=== PATIENT | male | born 1960 | race Caucasian/White ===

== ENCOUNTER → 2017-03-04 | Outpatient (CLI) | payer OTHER ==
[2015-11-20 12:23] VITALS: BP 129/77
[2017-03-04 08:09] LABS: BASOPHILS # (AUTO) 0.1 X10^3/uL (0.0-0.1); BASOPHILS % (AUTO) 1.2 % (0.2-1.0); EOSINOPHILS # (AUTO) 0.4 x10^3/uL (0.0-0.2); EOSINOPHILS % (AUTO) 4.9 % (0.9-2.9); HEMATOCRIT 43.5 % (42.0-54.0); HEMOGLOBIN 14.9 g/dL (13.5-18.0); HEMOGLOBIN A1C 10.1 % (4.5-6.2); LYMPHOCYTES % (AUTO) 26.5 % (21.0-51.0); MEAN CORPUSCULAR HEMOGLOBIN 28.7 pg (27.0-34.0); MEAN CORPUSCULAR HGB CONC 34.1 g/dL (33.0-35.0); MEAN PLATELET VOLUME 10.5 fL (7.4-11.0); MONOCYTES # (AUTO) 0.5 x10^3/uL (0.3-0.8); MONOCYTES % (AUTO) 6.9 % (0.0-13.0); NEUTROPHILS # (AUTO) 4.5 x10^3/uL (2.2-4.8); NEUTROPHILS % (AUTO) 60.5 % (42.0-75.0); PLATELET COUNT 137 X10^3/uL (150.0-450.0); RED BLOOD COUNT 5.18 X10^6/uL (4.7-6.0); RED CELL DISTRIBUTION WIDTH 14.2 % (11.6-16.5); WHITE BLOOD COUNT 7.5 X10^3/uL (3.6-10.0)
[2017-03-04 08:13] LABS: ALBUMIN 3.3 g/dL (3.4-5.0); CALCIUM 8.9 mg/dL (8.5-10.1); CARBON DIOXIDE 29.6 mmol/L (21-32); COR CA(FOR HYPOALB) 9.5 mg/dL (8.5-10.1); CREATININE 1.69 mg/dL (0.70-1.30); TOTAL PROTEIN 7.2 g/dL (6.4-8.2)
== END ==
LOC: LAB 07:22
PROVIDERS: ATTEND Obstetrics & Gynecology Obstetrics
DX: E11.9 Type 2 diabetes mellitus without complications (principal)
CPT/HCPCS: 36415; 80053; 80061; 83036; 83525; 85025

== ENCOUNTER 2020-01-26 12:43 | Observation (INO) ==
[2020-01-26 12:48] VITALS: BMI 35.7
--- NOTE | 2020-01-26 13:16 | DR.GENAD ---
HPI - PCP Primary Care Physician: IDANIA - Complaint/Symptoms Chief Complaint Doctors Comments: Patient is complaining of cold, cough, nausea, vomiting and diarrhea for the past four days. Patient states he has not been able to keep anything down from coughing and vomiting when he cough for the past four dayd. He has had not taste for four days. He is complaining of diarrhea and SOB but denies chest pain. States he dips but denies smoking. He use alcoho at times but denies drug usage. States he was at [facility] today and tested positive for COVID virus. He denies COVID exposure. He is a diabetic and is a patient of Dr. Kerns. States he is taking medicines for hypertension, thyroid and diabetes. Chief Complaint:: PT. C/O N/V/D X 4 DAYS. PT. IS A DIABETIC AND IS UNABLE TO KEEP ANYTHING DOWN. PT. C/O SHORTNESS OF BREATH AND COUGH. PT. WAS SEEN AT [facility] AND WAS TESTED FOR COVID 19 WHICH WAS POSITIVE. - COVID-19 Coronavirus risk:travel/contact w/high risk person: Yes Has patient experienced Coronavirus symptoms: Yes Coronavirus symptoms experienced: Coughing, Shortness of Breath - Source History Provided: Patient - Mode of Arrival Mode of Arrival: Ambulatory - Timing Onset of Chief Complaint: 01/22/20 Came on: Gradually - Duration Duration: Constant How lon Duration: Days - Severity Severity: Moderate - Modifying Factors Worsens:: coughing Improves:: nothing PMH - PMH Past Medical History: Yes Past Medical History: Diabetes, Hypertension Past Surgical History: Yes Surgical History: Other Past Surgical History Comment: CYST REMOVED, CATARACTS - Family History History of Family Medical Conditions: Yes Family Medical History: Diabetes Mellitus, [place], Coronary Artery Disease, Sudden Cardiac , Hypertension - Social History Does patient currently use any type of tobacco product: Yes Have you used tobacco products in the last 12 months: Yes Type of Tobacco Use: DIPS Does any household member use tobacco: No Alcohol Use: Rarely Do you use any recreational Drugs:: No Lives With: Spouse Lives Where: Home - Travel Risk Coronavirus risk:travel/contact w/high risk person: Yes Has patient experienced Coronavirus symptoms: Yes Coronavirus symptoms experienced: Coughing, Shortness of Breath - infectious screening In the last 2 months have you had wt loss of >10#?: NO Have you had fever, night sweats or hemotysis?: No Have you traveled outside the country in the last 6 months?: No Isolation: Droplet ROS - Review of Systems Constitutional: No Symptoms Reported, Weakness, Loss of Appetite Eyes: No Symptoms Reported ENTM: No Symptoms Reported Respiratoy: No Symptoms Reported, Productive Cough, Short of Breath Cardiovascular: No Symptoms Reported. negative: See HPI, Chest Pain, Edema, Palpitations, Syncope, Cyanosis, Skin Mottling, Other Gastrointestinal/Abdominal: No Symptoms Reported, Diarrhea, Nausea, Vomiting Genitourinary: No Symptoms Reported. negative: See HPI, Discharge, Dysuria, Frequency, Hematuria, Pain, Bleeding, Other Neurological: No Symptoms Reported Musculoskeletal: No Symptoms Reported Integumentary: No Symptoms Reported Hematologic/Lymphatic: No Symptoms Reported. negative: See HPI, Anemia, Blood Clots, Easy Bleeding, Easy Bruising, Swollen Glands, Lymphadenopathy, Other Endocrine: No Symptoms Reported Psychiatric: No Symptoms Reported. negative: See HPI, Anxiety, Depression, Hallucinations, Excessive crying, Suicidal, Other PE - General Limitations: No Limitations General Appearance: Alert, In Distress (moderate) - Head Head Exam: Normal Inspection, Atraumatic, Normocephalic - Eyes Eye exam: Normal Appearance, PERRL, EOMI. negative: Scleral Icterus, Conjunc tival Injection, Nystagmus, Miosis, Mydrasis, Periorbital Swelling, Periorbital Tenderness, Other - ENT ENT Exam: Normal Exam, Normal Oropharynx, Normal External Ear Exam, Mucous Membranes Moist, TM's Normal Bilaterally TM/Canal Exam: Bilateral Normal Nose Exam: Normal Nose Exam Mouth Exam: Normal Inspection. negative: Drooling, Trismus, Lip Swelling, Tongue Elevation, Tongue Swelling, Laceration, Other Throat Exam: Normal Inspection. negative: Tonsillar Erythema, Tonsillomegaly, Tonsillar Exudate, R Peritonsillar Mass, L Peritonsillar Mass, Muffled Voice, Other - Neck Neck Exam: Normal Inspection, Full ROM, Trachea Midline. negative: Tenderness, Meningismus, Lymphadenopathy, Thyromegaly, Other - Chest Chest Inspection: Normal Inspection, Symmetric Chest Wall Rise. negative: Tenderness, Rash, Abscess, Other - Respiratory Respiratory Exam: Normal Lung Sounds Bilat. negative: Accessory Muscle Use, Chest Wall Tenderness, Prolonged Expiratory Phase, Respiratory Distress, Stridor, Other Respiratory Exam: Bilateral Clear to Auscultation - Cardiovascular Cardiovascular Exam: Regular Rate, Normal Rhythm, Normal Heart Sounds - Abdominal Exam Abdominal Exam: Normal Inspection, Normal Bowel Sounds, Soft. negative: Distention, Tenderness, Guarding, Rebound, Rigidity, Dimnished Bowel Sounds, Hyperactive Bowel Sounds, Hypoactive Bowel Sounds, Organomegaly, Trauma, Incision, Ascites, Mass, Bruit, Pulsatile Mass, Hernia, Other Abdominal Tenderness: negative: RUQ, RLQ, LUQ, LLQ, Epigastrium, Suprapubic, Diffuse, Mild, Moderate, Severe, Other - Extremities Extremities Exam: Normal Inspection, Full ROM, Normal Capillary Refill. negative: Tenderness, Edema, Joint Swelling, Calf Tenderness, Other - Back Back Exam: Normal Inspection, Full ROM. negative: Tenderness, (R) CVA Tenderness, (L) CVA Tenderness, Muscle Spasm, Paraspinal Tenderness, Vertebral Tenderness, Rashes, (R) Sciatic Notch Tenderness, (L) Sciatic Notch Tendern, (R) Straight Leg Raise, (L) Straight Leg Raise, Other - Neurologic Neurological Exam: Alert, Oriented X3, CN II-XII Intact, Normal Gait, Reflexes Normal - Psychiatric Psychiatric Exam: Normal Affect, Normal Mood. negative: Depressed, Agitated, Anxious, Flat Affect, Manic, Homicidal Ideation, Suicidal Ideation, Other - Skin Skin Exam: Warm, Dry, Intact, Normal Color. negative: Rash, Cyanosis, Diaphoresis, Erythema, Pallor, Mottled, Other - Vital Signs Vitals: Temperature 97.1 F Pulse Rate 93 Respiratory Rate 21 Blood Pressure [Right Arm] 129/77 Blood Pressure [Left Arm] 119/82 Blood Pressure 166/129 O2 Sat by Pulse Oximetry 96 Course - Consultation Called: 14:47 Call Returned: 14:48 (Dr. Costello states admit and place on COVID without [place].) - Education/Counseling Education/Counseling: Patient, Family Educated On: Treatment, Diagnosis, Needs for Follow Up ROR - Labs Reviewed Laboratory Results Reviewed?: Yes (All labs and x-ray results reviewed and d iscussed with patient) Result Diagrams: 01/26/20 13:42 01/26/20 13:42 - XRAY XRAY Interpreted by: Radiologist (CXR: Minimal left lower lobe infiltrate compatible with acute infection. Followup suggested.) - EKG Rate: 96 [place]: Normal Rhythm: NSR Block: None Hypertrophy: LVH ST: Old, Inf, Infarct - Labs Reviewed Laboratory: WBC 5.8 X10^3/uL (3.6-10.0) 01/26/20 13:42 RBC 5.74 X10^6/uL (4.7-6.0) 01/26/20 13:42 Hgb 17.3 g/dL (13.5-18.0) 01/26/20 13:42 Hct 50.7 % (42.0-54.0) 01/26/20 13:42 MCV 88.3 fL (80.0-100.0) 01/26/20 13:42 MCH 30.2 pg (27.0-34.0) 01/26/20 13:42 MCHC 34.2 g/dL (33.0-35.0) 01/26/20 13:42 RDW 13.6 % (11.6-16.5) 01/26/20 13:42 Plt Count 126 X10^3/uL (150.0-450.0) L 01/26/20 13:42 MPV 10.8 fL (7.4-11.0) 01/26/20 13:42 Neut % (Auto) 71.8 % (42.0-75.0) 01/26/20 13:42 Lymph % (Auto) 14.0 % (21.0-51.0) L 01/26/20 13:42 [place] % (Auto) 13.0 % (0.0-13.0) 01/26/20 13:42 Eos % (Auto) 0.0 % (0.9-2.9) L 01/26/20 13:42 Baso % (Auto) 1.2 % (0.2-1.0) H 01/26/20 13:42 Neut # (Auto) 4.2 x10^3/uL (2.2-4.8) 01/26/20 13:42 Lymph # (Auto) 0.8 X10^3/uL (1.3-2.9) L 01/26/20 13:42 [place] # (Auto) 0.8 x10^3/uL (0.3-0.8) 01/26/20 13:42 Eos # (Auto) 0.0 x10^3/uL (0.0-0.2) 01/26/20 13:42 Baso # (Auto) 0.1 X10^3/uL (0.0-0.1) 01/26/20 13:42 Absolute Nucleated RBC 1.0 /100WBC 01/26/20 13:42 PT 13.8 SECONDS (11.8-14.3) 01/26/20 13:42 INR Target Range - 01/26/20 13:42 INR 1.09 (0.8-1.3) 01/26/20 13:42 APTT 26.6 SECONDS (22.9-36.5) 01/26/20 13:42 PTT Comment - 01/26/20 13:42 Sample Site Lrad 01/26/20 13:25 ABG pH 7.400 (7.35-7.45) 01/26/20 13:25 ABG pCO2 38.0 mmHg (35.0-45.0) 01/26/20 13:25 ABG pO2 66.0 mmHg (80.0-100.0) L 01/26/20 13:25 ABG HCO3 23.5 mmol/L (22-26) 01/26/20 13:25 ABG O2 Saturation 93.0 % (90-100) 01/26/20 13:25 ABG Base Excess -1.1 mmol/L (-2.0-2.0) 01/26/20 13:25 Umair Test Pos 01/26/20 13:25 A-a Gradient 36.0 mmHg 01/26/20 13:25 FiO2 21.0 01/26/20 13:25 Blood Gas Comments Pt maurilio wel elj 01/26/20 13:25 Sodium 133 mmol/L (136-145) L 01/26/20 13:42 Corrected Sodium 133 mmol/L (136-145) L 01/26/20 13:42 Potassium 3.8 mmol/L (3.5-5.1) 01/26/20 13:42 Chloride 94 mmol/L (98-107) L 01/26/20 13:42 Carbon Dioxide 30.1 mmol/L (21-32) 01/26/20 13:42 BUN 52 mg/dL (7-18) H 01/26/20 13:42 Creatinine 2.76 mg/dL (0.70-1.30) H 01/26/20 13:42 Est GFR (MDRD) Af Amer 30 (>60) L 01/26/20 13:42 Est GFR (MDRD) Non-Af 25 (>60) L 01/26/20 13:42 Glucose 115 mg/dL (65-99) H 01/26/20 13:42 Calcium 8.6 mg/dL (8.5-10.1) 01/26/20 13:42 Corrected Calcium TNP 01/26/20 13:42 Magnesium 2.0 mg/dL (1.7-2.9) 01/26/20 13:42 Ferritin 621 ng/mL (26-388) H 01/26/20 13:42 Total Bilirubin 0.60 mg/dL (0.2-1.0) 01/26/20 13:42 AST 49 Units/L (15-37) H 01/26/20 13:42 ALT 50 Units/L (12-78) 01/26/20 13:42 Alkaline Phosphatase 87 Units/L (46-116) 01/26/20 13:42 Creatine Kinase 296 Units/L (39-308) 01/26/20 13:42 CK-MB (CK-2) 1.2 ng/mL (0-4.0) 01/26/20 13:42 CK/CKMB % Calc 0.4 % (<4) 01/26/20 13:42 Troponin I < 0.02 ng/mL (0-1.5) 01/26/20 13:42 C-Reactive Protein 27.10 mg/L (0-3.0) H 01/26/20 13:42 Total Protein 8.1 g/dL (6.4-8.2) 01/26/20 13:42 Albumin 3.9 g/dL (3.4-5.0) 01/26/20 13:42 Globulin 4.2 g/dL (2.5-4.5) 01/26/20 13:42 Albumin/Globulin Ratio 0.9 Ratio (1.1-2.1) L 01/26/20 13:42 - XRAY Xray Findings: Abdominal series: No specific or significant abdominal abnormality demonstrated. (YUKI YIN) Opioid - Opioid Risk Tool Age (Nnamdi box if 16-45): No History of Preadolescent Sexual Abuse: No Total: 0 Total Score Risk Category: Low Risk - Diagnosis Discharge Problem: COVID-19 virus infection, Gastroenteritis due to COVID-19 virus, Pulmonary infiltrate in left lung on CXR, Dehydration, moderate Chronic kidney disease (CKD) Qualifiers: Chronic kidney disease stage: stage 3 (moderate) - Discharge Plan Disposition: 09 ADMITTED INPATIENT Condition: Stable - Follow ups/Referrals Follow ups/Referrals: JOJO KERNS [Primary Care Provider] - 3 days - Instructions
[2020-01-26] MEDS ORDERED: ZOFRAN INJ 4 MG VIAL IVP ONE (13:18)
[2020-01-26] MEDS ORDERED: ZOFRAN INJ 4 MG VIAL ONE (13:22)
[2020-01-26] MEDS ORDERED: NS 1000 ML 1,000 ML ONE (13:22)
[2020-01-26 13:33] LABS: ABG ALLEN TEST POS; ABG BASE EXCESS -1.1 mmol/L (-2.0-2.0); ABG HCO3 23.5 mmol/L (22-26)
[2020-01-26 13:52] LABS: BASOPHILS # (AUTO) 0.1 X10^3/uL (0.0-0.1); BASOPHILS % (AUTO) 1.2 % (0.2-1.0); HEMATOCRIT 50.7 % (42.0-54.0); HEMOGLOBIN 17.3 g/dL (13.5-18.0); LYMPHOCYTES # (AUTO) 0.8 X10^3/uL (1.3-2.9); MEAN CORPUSCULAR HEMOGLOBIN 30.2 pg (27.0-34.0); MEAN CORPUSCULAR HGB CONC 34.2 g/dL (33.0-35.0); MEAN CORPUSCULAR VOLUME 88.3 fL (80.0-100.0); MEAN PLATELET VOLUME 10.8 fL (7.4-11.0); MONOCYTES # (AUTO) 0.8 x10^3/uL (0.3-0.8); NEUTROPHILS # (AUTO) 4.2 x10^3/uL (2.2-4.8); NEUTROPHILS % (AUTO) 71.8 % (42.0-75.0); PLATELET COUNT 126 X10^3/uL (150.0-450.0); RED BLOOD COUNT 5.74 X10^6/uL (4.7-6.0); RED CELL DISTRIBUTION WIDTH 13.6 % (11.6-16.5); WHITE BLOOD COUNT 5.8 X10^3/uL (3.6-10.0)
--- NOTE | 2020-01-26 13:58 | RAD ---
HISTORYChest pain SOBSTUDYAP [id number] normal heart size. The right lung is clear. There is an il l-defined infiltrate in the left lower lobe not previously identified. The left upper lung is clear. No hilar enlargement or pleural fluid seen.IMPRESSIONMinimal left lower lobe infiltrate compatible wi th an acute infection. Follow-up suggested.Electronically signed by: KOFI CHRISTENSEN (Jan 26, 2020 13: 56:10)
--- NOTE | 2020-01-26 13:59 | RAD ---
HISTORYCough vomiting nauseaSTUDYAbdomen three viewsCOMPARISONNoneFINDINGSSupine and erect views of abdomen demonstrate unremarkable gas pattern. There is minimal nonobstructive dilatation of small bowel. No fluid level, pneumatosis, free air or ascites demonstrated. Visceral outlines are unremarkable. The lung bases are clear.IMPRESSIONNo specific or significant abdominal abnormality demonstrated.Electronically signed by: KOFI CHRISTENSEN (Jan 26, 2020 13:58:02)
[2020-01-26] MEDS ORDERED: NS 1000 ML 1,000 ML IV SCH (14:00)
[2020-01-26 14:12] LABS: BLOOD UREA NITROGEN 52 mg/dL (7-18); CALCIUM 8.6 mg/dL (8.5-10.1); CARBON DIOXIDE 30.1 mmol/L (21-32); CHLORIDE 94 mmol/L (98-107); COR NA(FOR HYPERGLY) 133 mmol/L (136-145); CREATININE 2.76 mg/dL (0.70-1.30); SODIUM 133 mmol/L (136-145); TROPONIN I < 0.02 ng/mL (0-1.5); eGFR NON BLACK RACES 25 (>60)
[2020-01-26 14:15] LABS: ALANINE AMINOTRANSFERASE 50 Units/L (12-78); ALBUMIN 3.9 g/dL (3.4-5.0); ALKALINE PHOSPHATASE 87 Units/L (46-116); ASPARTATE AMINO TRANSFERASE 49 Units/L (15-37); CKMB % 0.4 % (<4); CREATINE KINASE 296 Units/L (39-308); CREATINE KINASE MB 1.2 ng/mL (0-4.0); TOTAL PROTEIN 8.1 g/dL (6.4-8.2)
[2020-01-26] MEDS ORDERED: ROCEPHIN 1 GRAM IV PREMIX 1 G/50 ML IV.SOLN. IV ONE (14:25)
[2020-01-26] MEDS: ROCEPHIN VIAL 1 GRAM 1 G in NS 100 ML IV + SPIKE MINIBAG* 100 ML IV ONE (14:34)
[2020-01-26] MEDS ORDERED: REMDESIVIR 200 MG in NS 250 ML IV 250 ML IV SCH (15:00)
[2020-01-26] MEDS: DUONEB 0.5 MG/3 MG (3 mL) NEB SCH ×2 (16:15→21:47)
[2020-01-26] MEDS: ZINC SULFATE PO SCH ×2 (16:37→20:40)
[2020-01-26] MEDS: NS 1000 ML 1,000 ML IV SCH (16:38)
[2020-01-26] MEDS: ASCORBIC ACID INJ MULTI-DOSE VIAL 1,500 MG in NS 100 ML IV 100 ML IV SCH ×2 (16:38→20:40)
[2020-01-26] MEDS: LOVENOX INJ 30 MG SYR SC SCH (20:40)
[2020-01-26] MEDS: PULMICORT NEB TX 0.5 MG NEB SCH (21:47)
[2020-01-27] MEDS: DUONEB 0.5 MG/3 MG (3 mL) NEB SCH ×6 (01:19→21:30)
[2020-01-27] MEDS: ASCORBIC ACID INJ MULTI-DOSE VIAL 1,500 MG in NS 100 ML IV 100 ML IV SCH ×4 (03:25→21:29)
[2020-01-27 05:28] LABS: BASOPHILS % (AUTO) 0.3 % (0.2-1.0); EOSINOPHILS % (AUTO) 0.2 % (0.9-2.9); HEMATOCRIT 46.7 % (42.0-54.0); HEMOGLOBIN 16.3 g/dL (13.5-18.0); LYMPHOCYTES % (AUTO) 17.2 % (21.0-51.0); MEAN CORPUSCULAR HEMOGLOBIN 30.5 pg (27.0-34.0); MEAN CORPUSCULAR HGB CONC 34.8 g/dL (33.0-35.0); MEAN CORPUSCULAR VOLUME 87.5 fL (80.0-100.0); MEAN PLATELET VOLUME 10.9 fL (7.4-11.0); MONOCYTES # (AUTO) 0.8 x10^3/uL (0.3-0.8); MONOCYTES % (AUTO) 14.7 % (0.0-13.0); NEUTROPHILS # (AUTO) 3.9 x10^3/uL (2.2-4.8); NEUTROPHILS % (AUTO) 67.6 % (42.0-75.0); PLATELET COUNT 114 X10^3/uL (150.0-450.0); RED BLOOD COUNT 5.33 X10^6/uL (4.7-6.0); RED CELL DISTRIBUTION WIDTH 13.6 % (11.6-16.5); WHITE BLOOD COUNT 5.7 X10^3/uL (3.6-10.0)
[2020-01-27 05:56] LABS: ALBUMIN 3.2 g/dL (3.4-5.0); CARBON DIOXIDE 25.5 mmol/L (21-32); COR CA(FOR HYPOALB) 8.6 mg/dL (8.5-10.1); CREATININE 2.45 mg/dL (0.70-1.30)
[2020-01-27] MEDS: PULMICORT NEB TX 0.5 MG NEB SCH ×2 (08:25→21:30)
[2020-01-27] MEDS: DECADRON TAB PO SCH (08:47)
[2020-01-27] MEDS: LOVENOX INJ 30 MG SYR SC SCH ×2 (08:47→21:40)
[2020-01-27] MEDS: TRICOR TAB 160 MG PO SCH (08:48)
[2020-01-27] MEDS: ZINC SULFATE PO SCH ×2 (08:48→21:30)
[2020-01-27] MEDS ORDERED: VITAMIN D (1.25MG) PO SCH (09:00)
[2020-01-27] MEDS ORDERED: VITAMIN A PO SCH (09:00)
--- NOTE | 2020-01-27 11:04 | DR.H&P ---
H&P History & Physical for Day of: H&P Date: 01/27/20 Chief Complaint Chief Complaint: Cough, Nausea/vomiting Shortness of breath Allergies Allergies Allergy/AdvReac Type Severity Reaction Status Date / Time BEE STINGS Allergy Uncoded 11/28/13 20:23 History of Present Illness History of Present Illness: Pt is a 59 year old male pmhx HTN, DMT2, presenting with fever, chills, weakness, cough, nausea, vomiting and diarrhea for the past 3-4 days. He reports being unable to keep anything down. He also reports loss of taste. He states he went to [facility] and was told he was positive for COVID19. Labs/imaging: Wbc 5.7, Hgb 16.3, Plt 114, Na 133, K 3.7, Cr 2.76>2.45, Plt 159, D-dimer 0.67, AB.4/38/66/23.5/93% on RA, CRP 27, Troponin negative, KUB negative, CXR: Minimal left lower lobe infiltrate compatible with an acute infection. Follow-up suggested. Will start patient on IVF, Remdesivir, Decadron, Zosyn, Bronchodilators, immune supporting supplements, supplemental O2, RT support, and pneumonia protocol. Restart home medications. Continue to monitor and follow up labs/imaging in the morning. Past Medical History Past Medical History: Diabetes and Hypertension Past Surgical History Surgical History: Ortho Surgery Family History Family Medical History: Diabetes Mellitus, [place] and Hypertension Social History Does patient currently use any type of tobacco product: No Have you used tobacco products in the last 12 months: No Type of Tobacco Use: None Packs per day or dips/chews per day: DIPS Does any household member use tobacco: No Alcohol Use: None Drug Use: None Medications Home Medications: BEE STINGS Allergy (Uncoded 11/28/13 20:23) Labs Result Diagrams: 01/27/20 04:07 01/27/20 04:07 Labs: Laboratory WBC 5.7 X10^3/uL (3.6-10.0) 01/27/20 04:07 RBC 5.33 X10^6/uL (4.7-6.0) 01/27/20 04:07 Hgb 16.3 g/dL (13.5-18.0) 01/27/20 04:07 Hct 46.7 % (42.0-54.0) 01/27/20 04:07 MCV 87.5 fL (80.0-100.0) 01/27/20 04:07 MCH 30.5 pg (27.0-34.0) 01/27/20 04:07 MCHC 34.8 g/dL (33.0-35.0) 01/27/20 04:07 RDW 13.6 % (11.6-16.5) 01/27/20 04:07 Plt Count 114 X10^3/uL (150.0-450.0) L 01/27/20 04:07 MPV 10.9 fL (7.4-11.0) 01/27/20 04:07 Neut % (Auto) 67.6 % (42.0-75.0) 01/27/20 04:07 Lymph % (Auto) 17.2 % (21.0-51.0) L 01/27/20 04:07 [place] % (Auto) 14.7 % (0.0-13.0) H 01/27/20 04:07 Eos % (Auto) 0.2 % (0.9-2.9) L 01/27/20 04:07 Baso % (Auto) 0.3 % (0.2-1.0) 01/27/20 04:07 Neut # (Auto) 3.9 x10^3/uL (2.2-4.8) 01/27/20 04:07 Lymph # (Auto) 1.0 X10^3/uL (1.3-2.9) L 01/27/20 04:07 [place] # (Auto) 0.8 x10^3/uL (0.3-0.8) 01/27/20 04:07 Eos # (Auto) 0.0 x10^3/uL (0.0-0.2) 01/27/20 04:07 Baso # (Auto) 0.0 X10^3/uL (0.0-0.1) 01/27/20 04:07 Absolute Nucleated RBC 0.1 /100WBC 01/27/20 04:07 PT 13.8 SECONDS (11.8-14.3) 01/26/20 13:42 INR Target Range - 01/26/20 13:42 INR 1.09 (0.8-1.3) 01/26/20 13:42 APTT 26.6 SECONDS (22.9-36.5) 01/26/20 13:42 PTT Comment - 01/26/20 13:42 D-Dimer 0.67 ug/ml (0.0-0.57) H* 01/26/20 13:42 Sample Site Lrad 01/26/20 13:25 ABG pH 7.400 (7.35-7.45) 01/26/20 13:25 ABG pCO2 38.0 mmHg (35.0-45.0) 01/26/20 13:25 ABG pO2 66.0 mmHg (80.0-100.0) L 01/26/20 13:25 ABG HCO3 23.5 mmol/L (22-26) 01/26/20 13:25 ABG O2 Saturation 93.0 % (90-100) 01/26/20 13:25 ABG Base Excess -1.1 mmol/L (-2.0-2.0) 01/26/20 13:25 Umair Test Pos 01/26/20 13:25 A-a Gradient 36.0 mmHg 01/26/20 13:25 FiO2 21.0 01/26/20 13:25 Blood Gas Comments Pt maurilio wel elj 01/26/20 13:25 Sodium 133 mmol/L (136-145) L 01/27/20 04:07 Corrected Sodium 134 mmol/L (136-145) L 01/27/20 04:07 Potassium 3.7 mmol/L (3.5-5.1) 01/27/20 04:07 Chloride 96 mmol/L (98-107) L 01/27/20 04:07 Carbon Dioxide 25.5 mmol/L (21-32) 01/27/20 04:07 BUN 47 mg/dL (7-18) H 01/27/20 04:07 Creatinine 2.45 mg/dL (0.70-1.30) H 01/27/20 04:07 Est GFR (MDRD) Af Amer 35 (>60) L 01/27/20 04:07 Est GFR (MDRD) Non-Af 29 (>60) L 01/27/20 04:07 Glucose 159 mg/dL (65-99) H 01/27/20 04:07 POC Glucose (mg/dL) 176 mg/dL (65-99) H 01/27/20 05:55 Calcium 8.0 mg/dL (8.5-10.1) L 01/27/20 04:07 Corrected Calcium 8.6 mg/dL (8.5-10.1) 01/27/20 04:07 Magnesium 2.0 mg/dL (1.7-2.9) 01/26/20 13:42 Ferritin 621 ng/mL (26-388) H 01/26/20 13:42 Total Bilirubin 0.40 mg/dL (0.2-1.0) 01/27/20 04:07 AST 42 Units/L (15-37) H 01/27/20 04:07 ALT 39 Units/L (12-78) 01/27/20 04:07 Alkaline Phosphatase 74 Units/L (46-116) 01/27/20 04:07 Creatine Kinase 296 Units/L (39-308) 01/26/20 13:42 CK-MB (CK-2) 1.2 ng/mL (0-4.0) 01/26/20 13:42 CK/CKMB % Calc 0.4 % (<4) 01/26/20 13:42 Troponin I < 0.02 ng/mL (0-1.5) 01/26/20 13:42 C-Reactive Protein 27.10 mg/L (0-3.0) H 01/26/20 13:42 Total Protein 7.0 g/dL (6.4-8.2) 01/27/20 04:07 Albumin 3.2 g/dL (3.4-5.0) L 01/27/20 04:07 Globulin 3.8 g/dL (2.5-4.5) 01/27/20 04:07 Albumin/Globulin Ratio 0.8 Ratio (1.1-2.1) L 01/27/20 04:07 Review of Systems Constitutional: Fever, Chills and Weakness Eyes: No Symptoms Reported ENT: No Symptoms Reported Respiratory: Cough and Shortness of Breath Cardiovascular: No Symptoms Reported Gastrointestinal: Nausea, Abdominal Pain and Diarrhea Genitourinary: No Symptoms Reported Musculoskeletal: No Symptoms Reported Skin: No Symptoms Reported Neurological: No Symptoms Reported Physical Exam Vital Signs: Temperature 98.2 F Pulse Rate 104 Respiratory Rate 33 Blood Pressure [Right Arm] 129/77 Blood Pressure [Left Arm] 119/82 Blood Pressure 132/80 O2 Sat by Pulse Oximetry 95 Oriented: Normal Eyes: Normal Ear: Normal Nose: Normal Throat: Normal Respiratory: LLL Rales Cardiovascular: Normal : Normal Auscultation: Bowel Sounds: Normal Palpation: Normal Tenderness: Normal Skin: Normal Musculoskeletal: Normal Psychiatric: Normal Mood Description: Calm and Appropriate Affect: Normal Speech Pattern: Clear and Appropriate Assessment/Plan (1) COVID-19 virus infection: Status: Acute Plan: Remdesivir, Zosyn, Decadron, Bronchodilators, supplemental O2 (2) Gastroenteritis due to COVID-19 virus: Status: Acute (3) Dehydration, moderate: Status: Acute (4) Acute on chronic renal failure: Status: Acute Plan: IVF Review H&P Reviewed: Yes Patient was examined?: Yes
[2020-01-27] MEDS: REMDESIVIR 100 MG in NS 250 ML IV 250 ML IV SCH (11:24)
[2020-01-27] MEDS: ZOSYN VIAL 3.375 GRAMS 3.375 G in NS 100 ML IV + SPIKE MINIBAG* 100 ML IV SCH ×3 (11:24→22:24)
[2020-01-27] MEDS: HumuLIN R SC PRN ×3 (12:40→21:30)
[2020-01-27] MEDS: NS 1000 ML 1,000 ML IV SCH (15:15)
[2020-01-27] MEDS ORDERED: GLUCOPHAGE PO SCH (19:00)
[2020-01-27] MEDS ORDERED: SNACK - Diabetic Appropriate PO SCH (20:00)
[2020-01-27] MEDS ORDERED: LANTUS SC SCH (21:00)
[2020-01-28] MEDS: DUONEB 0.5 MG/3 MG (3 mL) NEB SCH ×3 (01:05→08:00)
[2020-01-28] MEDS: ASCORBIC ACID INJ MULTI-DOSE VIAL 1,500 MG in NS 100 ML IV 100 ML IV SCH ×2 (04:00→08:35)
[2020-01-28 05:25] LABS: BASOPHILS % (AUTO) 0.2 % (0.2-1.0); EOSINOPHILS % (AUTO) 0.1 % (0.9-2.9); HEMOGLOBIN 15.3 g/dL (13.5-18.0); LYMPHOCYTES # (AUTO) 0.6 X10^3/uL (1.3-2.9); MEAN CORPUSCULAR VOLUME 88.2 fL (80.0-100.0); MEAN PLATELET VOLUME 11.3 fL (7.4-11.0); MONOCYTES # (AUTO) 0.5 x10^3/uL (0.3-0.8); MONOCYTES % (AUTO) 10.7 % (0.0-13.0); NEUTROPHILS # (AUTO) 3.5 x10^3/uL (2.2-4.8); PLATELET COUNT 121 X10^3/uL (150.0-450.0); RED CELL DISTRIBUTION WIDTH 13.4 % (11.6-16.5); WHITE BLOOD COUNT 4.6 X10^3/uL (3.6-10.0)
[2020-01-28 05:37] LABS: ALBUMIN 3.2 g/dL (3.4-5.0); CALCIUM 8.3 mg/dL (8.5-10.1); CARBON DIOXIDE 26.8 mmol/L (21-32); COR CA(FOR HYPOALB) 8.9 mg/dL (8.5-10.1); CREATININE 2.49 mg/dL (0.70-1.30); TOTAL PROTEIN 7.1 g/dL (6.4-8.2)
--- NOTE | 2020-01-28 06:07 | RAD ---
[id number], PNEUMONIASTUDYCHEST, 1 [id number]/2020FINDINGSThe trachea is midline. The cardiac silhouette is unremarkable. Minimal left basilar infiltrate, unchanged. No pleural effusion or pneumothorax.. The bony thorax is unremarkable.IMPRESSIONStable portable chestElectronically signed by: Ramon Mooney (Jan 28, 2020 06:06:04)
[2020-01-28] MEDS: ZOSYN VIAL 3.375 GRAMS 3.375 G in NS 100 ML IV + SPIKE MINIBAG* 100 ML IV SCH (06:09)
[2020-01-28] MEDS: HumuLIN R SC PRN (06:12)
[2020-01-28] MEDS: PULMICORT NEB TX 0.5 MG NEB SCH (08:00)
[2020-01-28] MEDS: LOVENOX INJ 30 MG SYR SC SCH (08:35)
[2020-01-28] MEDS: DECADRON TAB PO SCH (08:35)
[2020-01-28] MEDS: REMDESIVIR 100 MG in NS 250 ML IV 250 ML IV SCH (08:36)
[2020-01-28] MEDS: TRICOR TAB 160 MG PO SCH (08:36)
[2020-01-28] MEDS: ZINC SULFATE PO SCH (08:37)
[2020-01-28] MEDS ORDERED: VITAMIN D3 125 mcg (5,000 UNITS) PO SCH (09:00)
[2020-01-28] MEDS ORDERED: GLUCOPHAGE PO SCH ×2 (09:00)
[2020-01-28] MEDS ORDERED: VITAMIN A PO SCH (09:00)
[2020-01-28 09:18] VITALS: BP 149/78
--- NOTE | 2020-01-28 09:25 | W.DIS.FURT ---
Summary of Discharge Discharge Summary of Date Date of Exam: 01/28/20 Admission Date Date of Admission: 01/26/20 Admission Diagnosis Patient Problems (Updated 01/27/20 @ 11:21 by Nicola Costello) COVID-19 virus infection (Acute) U07.1 Gastroenteritis due to COVID-19 virus (Acute) U07.1, A08.39 Pulmonary infiltrate in left lung on CXR (Acute) R91.8 Dehydration, moderate (Acute) E86.0 Chronic kidney disease (CKD) (Acute) N18.9 Hospital Course: Pt is a 59 year old male pmhx HTN, DMT2, admitted for COVID19(positive 01/26) and dehydration. His hospital and treatment course included: IVF, Remdesivir, De cadron, Zosyn, Bronchodilators, immune supporting supplements, supplemental O2, RT support, and pneumonia protocol. He responded well to treatments and his appetite and po intake improved. Labs/imaging: Wbc 4.6, Hgb 15.3, Plt 121, Na 140, K 3.8, Cr 2.49(~BL), Glucose 332, CRP 30, CXR: Minimal left lower lobe infiltrate compatible with an acute infection. Pt did not require supplemental O2 on discharge. He was discharged in stable condition with Levaquin x 5 days and Prednisone x 5 days. Instructed to follow up with pcp in 3-5 days. Vital Signs: Vital Signs (72 hours) 01/26/20 12:44 01/26/20 12:49 01/26/20 12:50 Temperature 97.1 F L Pulse Rate 87 89 Respiratory Rate 18 Blood Pressure 144/86 143/96 O2 Sat by Pulse Oximetry 95 90 L 96 01/26/20 13:00 01/26/20 13:15 01/26/20 13:30 Temperature Pulse Rate 86 90 91 H Respiratory Rate 26 H 32 H Blood Pressure 146/100 O2 Sat by Pulse Oximetry 96 98 01/26/20 13:45 01/26/20 14:00 01/26/20 14:15 Temperature Pulse Rate 90 92 H 91 H Respiratory Rate 17 32 H 21 Blood Pressure 145/81 150/88 O2 Sat by Pulse Oximetry 96 96 95 01/26/20 14:27 01/26/20 14:30 01/26/20 15:00 Temperature Pulse Rate 93 H Respiratory Rate Blood Pressure 166/129 158/92 O2 Sat by Pulse Oximetry 96 01/26/20 15:29 01/26/20 16:46 01/26/20 17:00 Temperature 99.3 F Pulse Rate 93 H 97 H 92 H Respiratory Rate 21 18 29 H Blood Pressure 158/92 135/88 135/88 O2 Sat by Pulse Oximetry 93 L 97 94 L 01/26/20 18:26 01/26/20 18:27 01/26/20 20:00 Temperature 99.4 F Pulse Rate 101 H 102 H 107 H Respiratory Rate 31 H 14 20 Blood Pressure 134/76 153/89 O2 Sat by Pulse Oximetry 89 L 88 L 95 01/26/20 21:47 01/27/20 00:00 01/27/20 04:00 Temperature 98.6 F 98.3 F Pulse Rate 90 99 H 90 Respiratory Rate 14 24 Blood Pressure 123/81 136/81 O2 Sat by Pulse Oximetry 95 96 97 01/27/20 08:00 01/27/20 08:25 01/27/20 09:01 Temperature 98.2 F Pulse Rate 93 H 104 H Respiratory Rate 19 33 H Blood Pressure 132/80 O2 Sat by Pulse Oximetry 90 L 93 L 95 01/27/20 11:35 01/27/20 12:10 01/27/20 12:24 Temperature 98.5 F Pulse Rate 96 H 94 H Respiratory Rate 0 L Blood Pressure 155/70 O2 Sat by Pulse Oximetry 96 93 L 98 01/27/20 16:31 01/27/20 17:27 01/27/20 20:00 Temperature 98.0 F 98.3 F Pulse Rate 109 H 110 H 101 H Respiratory Rate 20 Blood Pressure 141/74 130/82 O2 Sat by Pulse Oximetry 94 L 95 93 L 01/27/20 21:30 01/28/20 00:00 01/28/20 04:00 Temperature 97.9 F 97.6 F Pulse Rate 90 99 H 95 H Respiratory Rate 19 22 Blood Pressure 114/58 138/71 O2 Sat by Pulse Oximetry 93 L 98 98 01/28/20 08:00 Temperature 97.9 F Pulse Rate 103 H Respiratory Rate 22 Blood Pressure 149/78 O2 Sat by Pulse Oximetry 94 L Labs: Laboratory Last Values WBC 4.6 X10^3/uL (3.6-10.0) 01/28/20 04:18 RBC 5.10 X10^6/uL (4.7-6.0) 01/28/20 04:18 Hgb 15.3 g/dL (13.5-18.0) 01/28/20 04:18 Hct 45.0 % (42.0-54.0) 01/28/20 04:18 MCV 88.2 fL (80.0-100.0) 01/28/20 04:18 MCH 30.0 pg (27.0-34.0) 01/28/20 04:18 MCHC 34.0 g/dL (33.0-35.0) 01/28/20 04:18 RDW 13.4 % (11.6-16.5) 01/28/20 04:18 Plt Count 121 X10^3/uL (150.0-450.0) L 01/28/20 04:18 MPV 11.3 fL (7.4-11.0) H 01/28/20 04:18 Neut % (Auto) 77.0 % (42.0-75.0) H 01/28/20 04:18 Lymph % (Auto) 12.0 % (21.0-51.0) L 01/28/20 04:18 [place] % (Auto) 10.7 % (0.0-13.0) 01/28/20 04:18 Eos % (Auto) 0.1 % (0.9-2.9) L 01/28/20 04:18 Baso % (Auto) 0.2 % (0.2-1.0) 01/28/20 04:18 Neut # (Auto) 3.5 x10^3/uL (2.2-4.8) 01/28/20 04:18 Lymph # (Auto) 0.6 X10^3/uL (1.3-2.9) L 01/28/20 04:18 [place] # (Auto) 0.5 x10^3/uL (0.3-0.8) 01/28/20 04:18 Eos # (Auto) 0.0 x10^3/uL (0.0-0.2) 01/28/20 04:18 Baso # (Auto) 0.0 X10^3/uL (0.0-0.1) 01/28/20 04:18 Absolute Nucleated RBC 0.2 /100WBC 01/28/20 04:18 PT 13.8 SECONDS (11.8-14.3) 01/26/20 13:42 INR Target Range - 01/26/20 13:42 INR 1.09 (0.8-1.3) 01/26/20 13:42 APTT 26.6 SECONDS (22.9-36.5) 01/26/20 13:42 PTT Comment - 01/26/20 13:42 D-Dimer 0.67 ug/ml (0.0-0.57) H* 01/26/20 13:42 Sample Site Lrad 01/26/20 13:25 ABG pH 7.400 (7.35-7.45) 01/26/20 13:25 ABG pCO2 38.0 mmHg (35.0-45.0) 01/26/20 13:25 ABG pO2 66.0 mmHg (80.0-100.0) L 01/26/20 13:25 ABG HCO3 23.5 mmol/L (22-26) 01/26/20 13:25 ABG O2 Saturation 93.0 % (90-100) 01/26/20 13:25 ABG Base Excess -1.1 mmol/L (-2.0-2.0) 01/26/20 13:25 Umair Test Pos 01/26/20 13:25 A-a Gradient 36.0 mmHg 01/26/20 13:25 FiO2 21.0 01/26/20 13:25 Blood Gas Comments Pt maurilio wel elj 01/26/20 13:25 Sodium 134 mmol/L (136-145) L 01/28/20 04:18 Corrected Sodium 140 mmol/L (136-145) 01/28/20 04:18 Potassium 3.8 mmol/L (3.5-5.1) 01/28/20 04:18 Chloride 97 mmol/L (98-107) L 01/28/20 04:18 Carbon Dioxide 26.8 mmol/L (21-32) 01/28/20 04:18 BUN 42 mg/dL (7-18) H 01/28/20 04:18 Creatinine 2.49 mg/dL (0.70-1.30) H 01/28/20 04:18 Est GFR (MDRD) Af Amer 34 (>60) L 01/28/20 04:18 Est GFR (MDRD) Non-Af 28 (>60) L 01/28/20 04:18 Glucose 330 mg/dL (65-99) H 01/28/20 04:18 POC Glucose (mg/dL) 332 mg/dL (65-99) H 01/28/20 05:42 Calcium 8.3 mg/dL (8.5-10.1) L 01/28/20 04:18 Corrected Calcium 8.9 mg/dL (8.5-10.1) 01/28/20 04:18 Magnesium 2.0 mg/dL (1.7-2.9) 01/26/20 13:42 Ferritin 621 ng/mL (26-388) H 01/26/20 13:42 Total Bilirubin 0.40 mg/dL (0.2-1.0) 01/28/20 04:18 AST 33 Units/L (15-37) 01/28/20 04:18 ALT 40 Units/L (12-78) 01/28/20 04:18 Alkaline Phosphatase 84 Units/L (46-116) 01/28/20 04:18 Creatine Kinase 296 Units/L (39-308) 01/26/20 13:42 CK-MB (CK-2) 1.2 ng/mL (0-4.0) 01/26/20 13:42 CK/CKMB % Calc 0.4 % (<4) 01/26/20 13:42 Troponin I < 0.02 ng/mL (0-1.5) 01/26/20 13:42 C-Reactive Protein 30.80 mg/L (0-3.0) H 01/28/20 04:18 Total Protein 7.1 g/dL (6.4-8.2) 01/28/20 04:18 Albumin 3.2 g/dL (3.4-5.0) L 01/28/20 04:18 Globulin 3.9 g/dL (2.5-4.5) 01/28/20 04:18 Albumin/Globulin Ratio 0.8 Ratio (1.1-2.1) L 01/28/20 04:18 SARS CoV-2 RNA Rapid DAVID Positive (NEGATIVE) A 01/27/20 12:35 Reason For Visit: COVID INFECTION, GASTROENTERITIS Discharge Date Discharge Date: 01/28/20 Discharge Diagnosis All Active Problems (Updated 01/27/20 @ 11:21 by Nicola Costello) Acute on chronic renal failure (Acute) Nausea and vomiting (Acute) Dehydration (Acute) Dyspnea (Acute) Chest pain (Acute) COVID-19 virus infection (Acute) Gastroenteritis due to COVID-19 virus (Acute) Pulmonary infiltrate in left lung on CXR (Acute) Dehydration, moderate (Acute) Chronic kidney disease (CKD) (Acute) Plan of Treatment: Continue with present treatment and follow up plan. Pt is to keep follow up appointment as instructed and take medications as ordered. Discharge Medications Discharge Medications: BEE STINGS Allergy (Uncoded 11/28/13 20:23) CONTINUE taking the following medications Lantus U-100 Insulin 60 unit SUBCUT HS 01/27/20 [History] metformin 850 mg PO DAILY 01/27/20 [History] chlorthalidone 25 mg PO DAILY 01/28/20 [History] levothyroxine 25 mcg PO DAILY 01/28/20 [History] pioglitazone 30 mg PO DAILY 01/28/20 [History] New Prescriptions levofloxacin 750 mg PO Q24H 5 Days #5 tab 01/28/20 [Rx] Discharge Disposition Discharge Disposition: Home Discharge Condition: Stable Discharge Plan Discharge Plan Hospital Course: Pt is a 59 year old male pmhx HTN, DMT2, admitted for COVID19(positive 01/26) and dehydration. His hospital and treatment course included: IVF, Remdesivir, Decadron, Zosyn, Bronchodilators, immune supporting supplements, supplemental O 2, RT support, and pneumonia protocol. He responded well to treatments and his appetite and po intake improved. Labs/imaging: Wbc 4.6, Hgb 15.3, Plt 121, Na 140, K 3.8, Cr 2.49(~BL), Glucose 332, CRP 30, CXR: Minimal left lower lobe infiltrate compatible with an acute infection. Pt did not require supplemental O2 on discharge. He was discharged in stable condition with Levaquin x 5 days and Prednisone x 5 days. Instructed to follow up with pcp in 3-5 days. Patient Disposition: 01 HOME, SELF-CARE Condition: Stable Health Concerns: Post Hospitalization: new medications and changes needed to prevent readmission or further decline. Pt educated and given instructions on all concerns. Care Plan Goals: Problem: Respiratory Complications Goal: Improved Uncomplicated Respiratory Status Instructions: Follow provided instructions. Follow up with primary physician as directed. Contact primary care physician or report to the closest Emergency Room if condition worsens. Plan of Treatment: Continue with present treatment and follow up plan. Pt is to keep follow up appointment as instructed and take medications as ordered. Prescription drug monitoring program results: PDMP was not reviewed Prescriptions: New levofloxacin 750 mg tablet 750 mg PO Q24H 5 Days Qty: 5 RF: 0 prednisone 20 mg tablet 20 mg PO DAILY Qty: 5 RF: 0 Continued carvedilol 25 MG tablet 25 mg PO BID RF: 0 anastrozole 1 MG tablet 1 mg PO DAILY RF: 0 fenofibrate 160 MG tablet 160 mg PO DAILY RF: 0 Lisinopril 20 MG Tab 20 mg PO DAILY RF: 0 atorvastatin [Lipitor] 20 MG tablet 20 mg PO HS RF: 0 testosterone cypionate [Depo-Testosterone] 1,000 MG/10 ML oil 100 mg IM WEEKLY RF: 0 nitroglycerin [Nitrostat] 0.4 MG tablet, sublingual 0.4 mg Sublingual PRN PRN (Reason: Angina (Chest Pain)) RF: 0 apixaban [Eliquis] 5 MG tablet 10 mg PO BID Qty: 66 RF: 6 Lantus U-100 Insulin 100 unit/mL Solution 60 unit SUBCUT HS RF: 0 metformin 850 mg Tablet 850 mg PO DAILY RF: 0 chlorthalidone 25 mg tablet 25 mg PO DAILY RF: 0 levothyroxine 25 mcg tablet 25 mcg PO DAILY RF: 0 pioglitazone 30 mg tablet 30 mg PO DAILY RF: 0 Orders to Discharge Patient Discharge Orders: Discharge (Routine); Ordered 01/28/20 Ordered By: Nicola Costello Follow ups/Referrals Follow ups/Referrals: JOJO EMERSON [Primary Care Provider] - 02/04/20 9:30 am Instructions Instructions: Dehydration, Adult, [id number], Hand Washing, Fukx-jx-Btpk, Antibiotic Medicine, Adult, Usgl-fm-Mquf, Viral Gastroenteritis, Adult, Teeq-dm-Cbgg, Type 2 Diabetes Mellitus, Self Care, Adult, Cglm-ff-Mvtq, Acute Kidney Injury, Adult, Nausea and Vomiting, Adult, Chqq-bo-Kymw, Droplet Precautions, Vfwq-on-Lqcf, Contact Precautions, Vzbp-me-Fylj, Viral Respiratory Infection, Community-Acquired Pneumonia, Adult, Ttdy-zb-Hwyj Stand Alone Forms: Excuse From Work or School, Precautions for COVID19, Patient Portal, Social Distancing
== END 2020-01-28 10:40 | disposition home or self-care (01) ==
LOC: ER 12:43 → ICU 12:43
PROVIDERS: ADMIT Family Medicine; ATTEND Family Medicine

== ENCOUNTER 2020-02-02 16:18 | Observation (INO) ==
[2020-02-02] MEDS ORDERED: NS 500 ML IV 1,000 ML IV ONE (17:03)
[2020-02-02] MEDS ORDERED: ZOFRAN INJ 4 MG VIAL IVP ONE (17:03)
[2020-02-02] MEDS ORDERED: XOPENEX 1.25 MG/3 ML NEBULE NEB ONE ×2 (17:20→18:09)
[2020-02-02 17:22] LABS: BASOPHILS % (AUTO) 0.1 % (0.2-1.0); EOSINOPHILS % (AUTO) 0.2 % (0.9-2.9); HEMATOCRIT 51.3 % (42.0-54.0); HEMOGLOBIN 17.5 g/dL (13.5-18.0); LYMPHOCYTES % (AUTO) 6.5 % (21.0-51.0); MEAN CORPUSCULAR HGB CONC 34.1 g/dL (33.0-35.0); MEAN CORPUSCULAR VOLUME 88.1 fL (80.0-100.0); MEAN PLATELET VOLUME 10.3 fL (7.4-11.0); MONOCYTES % (AUTO) 6.1 % (0.0-13.0); NEUTROPHILS # (AUTO) 13.9 x10^3/uL (2.2-4.8); NEUTROPHILS % (AUTO) 87.1 % (42.0-75.0); PLATELET COUNT 198 X10^3/uL (150.0-450.0); RED BLOOD COUNT 5.83 X10^6/uL (4.7-6.0); RED CELL DISTRIBUTION WIDTH 13.2 % (11.6-16.5); WHITE BLOOD COUNT 15.9 X10^3/uL (3.6-10.0)
--- NOTE | 2020-02-02 17:25 | RAD ---
HISTORYcovidSTUDYPortable AP [id number] heart size. The lungs are clear. There is no pleural fluid identified. There is dilatation of the thoracic aorta.IMPRESSIONNo acute cardiac, pulmonary or pleural lesion demonstrated. Aortic dilatation consistent with hypertension.Electronically signed by: KOFI CHRISTENSEN (Feb 02, 2020 17:23:21)
[2020-02-02 17:32] LABS: ALANINE AMINOTRANSFERASE 39 Units/L (12-78); ALBUMIN 3.5 g/dL (3.4-5.0); ALKALINE PHOSPHATASE 74 Units/L (46-116); ASPARTATE AMINO TRANSFERASE 25 Units/L (15-37); BLOOD UREA NITROGEN 61 mg/dL (7-18); CALCIUM 9.5 mg/dL (8.5-10.1); CARBON DIOXIDE 32.4 mmol/L (21-32); CHLORIDE 92 mmol/L (98-107); COR NA(FOR HYPERGLY) 135 mmol/L (136-145); CREATININE 3.24 mg/dL (0.70-1.30); SODIUM 131 mmol/L (136-145); TOTAL PROTEIN 7.6 g/dL (6.4-8.2); eGFR NON BLACK RACES 21 (>60)
[2020-02-02] MEDS ORDERED: ZOFRAN INJ 4 MG VIAL ONE (17:34)
[2020-02-02] MEDS ORDERED: NS 1000 ML 1,000 ML ONE ×2 (17:34→23:10)
--- NOTE | 2020-02-02 17:36 | DR.N/VMALE ---
HPI Time Seen Time Seen by Provider: 02/02/20 16:41 Primary Care Physician Primary Care Physician: IDANIA MENDOZA Complaints Chief Complaint:: PT STATES HE WAS IN THE HOSPITAL LAST WEEK FOR COVID , AND HE WAS D/C ON TUESDAY AND HE HAS NOT BEEN ABLE TO KEEP ANYTHING DOWN ( HE C/O < APPETITE AND VOMITING UP WHAT HE EATS ) .BR COVID-19 Coronavirus risk:travel/contact w/high risk person: No Has patient experienced Coronavirus symptoms: Yes Coronavirus symptoms experienced: Shortness of Breath Source History Provided: Patient Mode of Arrival Mode of Arrival: Ambulatory Timing Onset of Chief Complaint: 01/29/20 PMH PMH Past Medical History: Yes Past Medical History: Diabetes and Hypertension Past Surgical History: Yes Surgical History: Ortho Surgery Family History History of Family Medical Conditions: Yes Family Medical History: Diabetes Mellitus, CA and Hypertension Social History Does patient currently use any type of tobacco product: No Have you used tobacco products in the last 12 months: No Type of Tobacco Use: None Does any household member use tobacco: No Alcohol Use: None Do you use any recreational Drugs:: No Lives With: Family Lives Where: Home Travel Risk Coronavirus risk:travel/contact w/high risk person: No Has patient experienced Coronavirus symptoms: Yes Coronavirus symptoms experienced: Shortness of Breath Infectious screening In the last 2 months have you had wt loss of >10#?: NO Have you had fever, night sweats or hemotysis?: No Have you traveled outside the country in the last 6 months?: No Isolation: Droplet ROS Review of Systems Constitutional: No Symptoms Reported Eyes: No Symptoms Reported ENTM: No Symptoms Reported and Throat Pain Respiratoy: Productive Cough Cardiovascular: No Symptoms Reported Gastrointestinal/Abdominal: Nausea and Vomiting Genitourinary: No Symptoms Reported Neurological: No Symptoms Reported Musculoskeletal: No Symptoms Reported Integumentary: No Symptoms Reported Hematologic/Lymphatic: No Symptoms Reported Endocrine: No Symptoms Reported Psychiatric: No Symptoms Reported All Other Systems: Reviewed and Negative PE Vital Signs Vitals: Temperature 97.2 F Pulse Rate 103 Respiratory Rate 22 Blood Pressure [Right Arm] 129/77 Blood Pressure [Left Arm] 119/82 Blood Pressure 117/73 O2 Sat by Pulse Oximetry 97 General Limitations: No Limitations General Appearance: Alert and In No Apparent Distress Head Head Exam: Normal Inspection, Atraumatic and Normocephalic Eyes Eye exam: Normal Appearance and EOMI ENT ENT Exam: Normal Exam and Normal Oropharynx Neck Neck Exam: Normal Inspection, Full ROM and Trachea Midline Chest Chest Inspection: Normal Inspection Respiratory Respiratory Exam: Normal Lung Sounds Bilat and Other (cough) Respiratory Exam: Bilateral: Clear to Auscultation Cardiovascular Cardiovascular Exam: Tachycardia Abdominal Exam Abdominal Exam: Normal Inspection Rectal Rectal Exam: Deferred Exam: Male: Deferred Extremities Extremities Exam: Normal Inspection and Full ROM Back Back Exam: Normal Inspection and Full ROM Neurologic Neurological Exam: Alert, Oriented X3, CN II-XII Intact and Normal Gait Psychiatric Psychiatric Exam: Normal Affect Skin Skin Exam: Normal Color COURSE Consultation Called: 20:29 Consultation Comments: Case discussed with Dr. Costello ROR Labs Reviewed Result Diagrams: 02/02/20 17:12 02/02/20 17:12 Laboratory: WBC 15.9 X10^3/uL (3.6-10.0) H 02/02/20 17:12 RBC 5.83 X10^6/uL (4.7-6.0) 02/02/20 17:12 Hgb 17.5 g/dL (13.5-18.0) 02/02/20 17:12 Hct 51.3 % (42.0-54.0) 02/02/20 17:12 MCV 88.1 fL (80.0-100.0) 02/02/20 17:12 MCH 30.0 pg (27.0-34.0) 02/02/20 17:12 MCHC 34.1 g/dL (33.0-35.0) 02/02/20 17:12 RDW 13.2 % (11.6-16.5) 02/02/20 17:12 Plt Count 198 X10^3/uL (150.0-450.0) 02/02/20 17:12 MPV 10.3 fL (7.4-11.0) 02/02/20 17:12 Neut % (Auto) 87.1 % (42.0-75.0) H 02/02/20 17:12 Lymph % (Auto) 6.5 % (21.0-51.0) L 02/02/20 17:12 [place] % (Auto) 6.1 % (0.0-13.0) 02/02/20 17:12 Eos % (Auto) 0.2 % (0.9-2.9) L 02/02/20 17:12 Baso % (Auto) 0.1 % (0.2-1.0) L 02/02/20 17:12 Neut # (Auto) 13.9 x10^3/uL (2.2-4.8) H 02/02/20 17:12 Lymph # (Auto) 1.0 X10^3/uL (1.3-2.9) L 02/02/20 17:12 [place] # (Auto) 1.0 x10^3/uL (0.3-0.8) H 02/02/20 17:12 Eos # (Auto) 0.0 x10^3/uL (0.0-0.2) 02/02/20 17:12 Baso # (Auto) 0.0 X10^3/uL (0.0-0.1) 02/02/20 17:12 Absolute Nucleated RBC 0.0 /100WBC 02/02/20 17:12 Sodium 131 mmol/L (136-145) L 02/02/20 17:12 Corrected Sodium 135 mmol/L (136-145) L 02/02/20 17:12 Potassium 4.5 mmol/L (3.5-5.1) 02/02/20 17:12 Chloride 92 mmol/L (98-107) L 02/02/20 17:12 Carbon Dioxide 32.4 mmol/L (21-32) H 02/02/20 17:12 BUN 61 mg/dL (7-18) H 02/02/20 17:12 Creatinine 3.24 mg/dL (0.70-1.30) H 02/02/20 17:12 Est GFR (MDRD) Af Amer 25 (>60) L 02/02/20 17:12 Est GFR (MDRD) Non-Af 21 (>60) L 02/02/20 17:12 Glucose 253 mg/dL (65-99) H 02/02/20 17:12 Calcium 9.5 mg/dL (8.5-10.1) 02/02/20 17:12 Corrected Calcium TNP 02/02/20 17:12 Total Bilirubin 0.80 mg/dL (0.2-1.0) 02/02/20 17:12 AST 25 Units/L (15-37) 02/02/20 17:12 ALT 39 Units/L (12-78) 02/02/20 17:12 Alkaline Phosphatase 74 Units/L (46-116) 02/02/20 17:12 Total Protein 7.6 g/dL (6.4-8.2) 02/02/20 17:12 Albumin 3.5 g/dL (3.4-5.0) 02/02/20 17:12 Globulin 4.1 g/dL (2.5-4.5) 02/02/20 17:12 Albumin/Globulin Ratio 0.9 Ratio (1.1-2.1) L 02/02/20 17:12 XRAY XRAY Interpreted by: Radiologist X-ray Results: chest: normal Opioid Opioid Risk Tool Age (Nnamdi box if 16-45): No History of Preadolescent Sexual Abuse: No Total: 0 Total Score Risk Category: Low Risk Copyright: Damián REECE predicting aberrant behaviors
[2020-02-02] MEDS ORDERED: ROCEPHIN VIAL 1 GRAM IV ONE (19:24)
[2020-02-02] MEDS ORDERED: SOLU-Medrol 125 MG VIAL IVP ONE (19:25)
[2020-02-02] MEDS ORDERED: ROCEPHIN VIAL 1 GRAM ONE (19:37)
[2020-02-02] MEDS ORDERED: SOLU-Medrol 125 MG VIAL ONE (19:37)
[2020-02-02] MEDS ORDERED: ZOFRAN INJ 4 MG VIAL IVP PRN (21:53)
[2020-02-02] MEDS ORDERED: ZITHROMAX INJ 500 MG VIAL IV ONE (23:10)
[2020-02-02] MEDS ORDERED: NS 250 ML IV 250 ML IV ONE (23:10)
[2020-02-02] MEDS: NS 1000 ML 1,000 ML IV SCH (23:11)
[2020-02-02] MEDS ORDERED: ZITHROMAX INJ 500 MG VIAL 500 MG in NS 250 ML IV 250 ML IV SCH (23:30)
[2020-02-03 02:09] VITALS: BMI 33.7
[2020-02-03 05:14] LABS: BASOPHILS # (AUTO) 0.1 X10^3/uL (0.0-0.1); BASOPHILS % (AUTO) 0.5 % (0.2-1.0); EOSINOPHILS # (AUTO) 0.1 x10^3/uL (0.0-0.2); EOSINOPHILS % (AUTO) 0.7 % (0.9-2.9); HEMATOCRIT 50.8 % (42.0-54.0); HEMOGLOBIN 17.2 g/dL (13.5-18.0); LYMPHOCYTES # (AUTO) 0.3 X10^3/uL (1.3-2.9); LYMPHOCYTES % (AUTO) 2.2 % (21.0-51.0); MEAN CORPUSCULAR HEMOGLOBIN 29.9 pg (27.0-34.0); MEAN CORPUSCULAR HGB CONC 33.9 g/dL (33.0-35.0); MEAN CORPUSCULAR VOLUME 88.4 fL (80.0-100.0); MEAN PLATELET VOLUME 9.7 fL (7.4-11.0); MONOCYTES # (AUTO) 0.1 x10^3/uL (0.3-0.8); MONOCYTES % (AUTO) 0.8 % (0.0-13.0); NEUTROPHILS # (AUTO) 14.8 x10^3/uL (2.2-4.8); NEUTROPHILS % (AUTO) 95.8 % (42.0-75.0); PLATELET COUNT 180 X10^3/uL (150.0-450.0); RED BLOOD COUNT 5.75 X10^6/uL (4.7-6.0); RED CELL DISTRIBUTION WIDTH 13.4 % (11.6-16.5); WHITE BLOOD COUNT 15.5 X10^3/uL (3.6-10.0)
[2020-02-03 05:28] LABS: ALBUMIN 3.3 g/dL (3.4-5.0); CALCIUM 9.1 mg/dL (8.5-10.1); COR CA(FOR HYPOALB) 9.7 mg/dL (8.5-10.1); CREATININE 2.85 mg/dL (0.70-1.30); TOTAL PROTEIN 7.5 g/dL (6.4-8.2)
[2020-02-03 05:33] LABS: BILIRUBIN,URINE NEGATIVE (NEGATIVE); BLOOD/HEMOGLOBIN,URINE NEGATIVE (NEGATIVE); GLUCOSE, URINE 1+ (NEGATIVE); KETONES,URINE 2+ (NEGATIVE); LEUKOCYTE ESTERASE ,URINE NEGATIVE (NEGATIVE); NITRITES,URINE NEGATIVE (NEGATIVE); PROTEIN,URINE 3+ (NEGATIVE); UROBILINOGEN,URINE NORMAL (NORMAL)
[2020-02-03 05:34] LABS: CARBON DIOXIDE 26.3 mmol/L (21-32)
[2020-02-03 05:41] LABS: APPEARANCE,URINE CLEAR (CLEAR); BACTERIA,URINE TRACE /HPF (NEGATIVE); COLOR,URINE YELLOW (YELLOW); RBC,URINE NONE SEEN /HPF (0-3); SQUAMOUS EPITHELIAL CELL,UR NEGATIVE /HPF (NEGATIVE)
[2020-02-03] MEDS: HumuLIN R SC PRN ×2 (06:03→17:34)
[2020-02-03 06:14] LABS: PLATELET MORPHOLOGY COMMENT NORMAL (NORMAL)
--- NOTE | 2020-02-03 11:00 | DR.H&P ---
H&P History & Physical for Day of: H&P Date: 02/03/20 Chief Complaint Chief Complaint: nausea, vomiting, decreased oral intake Allergies Allergies Allergy/AdvReac Type Severity Reaction Status Date / Time BEE STINGS Allergy Uncoded 11/28/13 20:23 History of Present Illness History of Present Illness: Mr. Fraser is a 59y/o male with a PMH of Type 2 DM, HTN, HLD and hypothyroidism with recent COVID-19 infection presented with nausea, vomiting and poor oral intake. He tested positive for COVID on 01/26. He was admitted for COVID pneumonia and discharged on 01/28. He states he has been having intractable nausea and vomiting for the past 4-5 days. He has not been able to keep down anything including liquids. He also had some diarrhea but that has resolved now. Denies fever or chills. Denies abdominal pain. ED work-up UA: negative for infection, CXR: no acute consolidation or infiltrate Labs: WBC 15.5 Hgb 17.2 BUN/Cr: 61/3.24 now 2.85 He received a bolus of IVF , Zofran, Rocephin and solumedrol dose. Plan: continue hydration with NS, change Zofran to q6hrs prn. DC Azithromax. Start clear liquid diet and advance as tolerated. Resume home meds, hold nephrotoxic medications. Use SSI , start Lantus 30 units qhS. Monitor AM labs. Past Medical History Past Medical History: Diabetes, Dyslipidemia, Hypertension and Hypothyroidism Past Surgical History Surgical History: Ortho Surgery Family History Family Medical History: Diabetes Mellitus, Cancer and Hypertension Social History Does patient currently use any type of tobacco product: No Have you used tobacco products in the last 12 months: No Type of Tobacco Use: None Does any household member use tobacco: No Alcohol Use: None Drug Use: None Prescription drug monitoring program results: PDMP reviewed and no concerns identified Medications Home Medications: BEE STINGS Allergy (Uncoded 11/28/13 20:23) CONTINUE taking the following medications liraglutide [Victoza 3-Danny] 0.8 mg SUBCUT DAILY 02/03/20 [History] Labs Result Diagrams: 02/03/20 04:55 02/03/20 04:55 Labs: Laboratory WBC 15.5 X10^3/uL (3.6-10.0) H 02/03/20 04:55 RBC 5.75 X10^6/uL (4.7-6.0) 02/03/20 04:55 Hgb 17.2 g/dL (13.5-18.0) 02/03/20 04:55 Hct 50.8 % (42.0-54.0) 02/03/20 04:55 MCV 88.4 fL (80.0-100.0) 02/03/20 04:55 MCH 29.9 pg (27.0-34.0) 02/03/20 04:55 MCHC 33.9 g/dL (33.0-35.0) 02/03/20 04:55 RDW 13.4 % (11.6-16.5) 02/03/20 04:55 Plt Count 180 X10^3/uL (150.0-450.0) 02/03/20 04:55 Plt Count Comment Adequate (ADEQUATE) 02/03/20 04:55 MPV 9.7 fL (7.4-11.0) 02/03/20 04:55 Neut % (Auto) 95.8 % (42.0-75.0) H 02/03/20 04:55 Lymph % (Auto) 2.2 % (21.0-51.0) L 02/03/20 04:55 [place] % (Auto) 0.8 % (0.0-13.0) 02/03/20 04:55 Eos % (Auto) 0.7 % (0.9-2.9) L 02/03/20 04:55 Baso % (Auto) 0.5 % (0.2-1.0) 02/03/20 04:55 Neut # (Auto) 14.8 x10^3/uL (2.2-4.8) H 02/03/20 04:55 Lymph # (Auto) 0.3 X10^3/uL (1.3-2.9) L 02/03/20 04:55 [place] # (Auto) 0.1 x10^3/uL (0.3-0.8) L 02/03/20 04:55 Eos # (Auto) 0.1 x10^3/uL (0.0-0.2) 02/03/20 04:55 Baso # (Auto) 0.1 X10^3/uL (0.0-0.1) 02/03/20 04:55 Absolute Nucleated RBC 0.0 /100WBC 02/03/20 04:55 Total Counted 100 02/03/20 04:55 Neutrophils % (Manual) 94 % (39-76) H 02/03/20 04:55 Lymphocytes % (Manual) 3 % (13-43) L 02/03/20 04:55 Monocytes % (Manual) 3 % (4-9) L 02/03/20 04:55 Plt Morphology Comment Normal (NORMAL) 02/03/20 04:55 RBC Morphology Normal (NORMAL) 02/03/20 04:55 Sodium 132 mmol/L (136-145) L 02/03/20 04:55 Corrected Sodium 136 mmol/L (136-145) 02/03/20 04:55 Potassium 4.4 mmol/L (3.5-5.1) 02/03/20 04:55 Chloride 94 mmol/L (98-107) L 02/03/20 04:55 Carbon Dioxide 26.3 mmol/L (21-32) 02/03/20 04:55 BUN 61 mg/dL (7-18) H 02/03/20 04:55 Creatinine 2.85 mg/dL (0.70-1.30) H 02/03/20 04:55 Est GFR (MDRD) Af Amer 29 (>60) L 02/03/20 04:55 Est GFR (MDRD) Non-Af 24 (>60) L 02/03/20 04:55 Glucose 269 mg/dL (65-99) H 02/03/20 04:55 POC Glucose (mg/dL) 270 mg/dL (65-99) H 02/03/20 04:57 Calcium 9.1 mg/dL (8.5-10.1) 02/03/20 04:55 Corrected Calcium 9.7 mg/dL (8.5-10.1) 02/03/20 04:55 Magnesium 2.3 mg/dL (1.7-2.9) 02/03/20 04:55 Total Bilirubin 0.60 mg/dL (0.2-1.0) 02/03/20 04:55 AST 22 Units/L (15-37) 02/03/20 04:55 ALT 35 Units/L (12-78) 02/03/20 04:55 Alkaline Phosphatase 70 Units/L (46-116) 02/03/20 04:55 Total Protein 7.5 g/dL (6.4-8.2) 02/03/20 04:55 Albumin 3.3 g/dL (3.4-5.0) L 02/03/20 04:55 Globulin 4.2 g/dL (2.5-4.5) 02/03/20 04:55 Albumin/Globulin Ratio 0.8 Ratio (1.1-2.1) L 02/03/20 04:55 Specimen Type Clean catch urine 02/03/20 04:20 Urine Color Yellow (YELLOW) 02/03/20 04:20 Urine Appearance Clear (CLEAR) 02/03/20 04:20 Urine pH 5.0 (5.0 - 8.0) 02/03/20 04:20 Ur Specific [place] 1.025 (1.000-1.030) 02/03/20 04:20 Urine Protein 3+ (NEGATIVE) 02/03/20 04:20 Urine Glucose (UA) 1+ (NEGATIVE) 02/03/20 04:20 Urine Ketones 2+ (NEGATIVE) 02/03/20 04:20 Urine Occult Blood Negative (NEGATIVE) 02/03/20 04:20 Urine Nitrite Negative (NEGATIVE) 02/03/20 04:20 Urine Bilirubin Negative (NEGATIVE) 02/03/20 04:20 Urine Urobilinogen Normal (NORMAL) 02/03/20 04:20 Ur Leukocyte Esterase Negative (NEGATIVE) 02/03/20 04:20 Urine RBC None seen /HPF (0-3) 02/03/20 04:20 Urine WBC None seen /HPF (0-5) 02/03/20 04:20 Ur Squamous Epith Cells Negative /HPF (NEGATIVE) 02/03/20 04:20 Urine Bacteria Trace /HPF (NEGATIVE) 02/03/20 04:20 Ur Culture Indicated? No/not indicated 02/03/20 04:20 Review of Systems Constitutional: Weakness ENT: No Symptoms Reported Respiratory: No Symptoms Reported Cardiovascular: No Symptoms Reported Gastrointestinal: Nausea, Vomiting and Diarrhea Genitourinary: No Symptoms Reported Musculoskeletal: No Symptoms Reported Skin: No Symptoms Reported Neurological: No Symptoms Reported Physical Exam Vital Signs: Temperature 98.8 F Pulse Rate [Left Brachial] 99 Pulse Rate 96 Respiratory Rate 14 Blood Pressure [Right Arm] 137/78 Blood Pressure [Left Arm] 118/76 Blood Pressure 137/78 O2 Sat by Pulse Oximetry 96 Oriented: Normal Eyes: Normal Ear: Normal Nose: Normal Respiratory: Clear Throughout Cardiovascular: Normal Auscultation: Bowel Sounds: Normal Palpation: Normal Tenderness: Normal Skin: Normal Musculoskeletal: Normal Psychiatric: Normal Mood Description: Calm Affect: Normal Speech Pattern: Clear and Appropriate Assessment/Plan (1) COVID-19 virus infection: Status: Acute (2) Acute on chronic renal failure: Qualifiers: Acute renal failure type: unspecified Chronic kidney disease stage: unspecified stage Qualified Code(s): N17.9 - Acute kidney failure, unspecified; N18.9 - Chronic kidney disease, unspecified Status: Acute (3) Nausea and vomiting: Qualifiers: Vomiting type: bilious vomiting Qualified Code(s): R11.14 - Bilious vomiting Status: Acute (4) Dehydration: Status: Acute Review H&P Reviewed: Yes Patient was examined?: Yes
[2020-02-03] MEDS: ZOFRAN INJ 4 MG VIAL IVP PRN ×2 (11:50→20:29)
[2020-02-03] MEDS: COREG TAB 25 MG PO SCH ×2 (14:00→20:29)
[2020-02-03] MEDS: SYNTHROID 25 mcg TAB PO SCH (14:00)
[2020-02-03] MEDS: HEPARIN SODIUM INJ 5000 UNITS SC SCH ×2 (15:02→20:29)
[2020-02-03] MEDS: NS 1000 ML 1,000 ML IV SCH ×2 (17:35→17:41)
[2020-02-03] MEDS ORDERED: TUSSIONEX PENNKINETIC SUSP PO PRN (20:08)
[2020-02-03] MEDS: SNACK - Diabetic Appropriate PO SCH (20:28)
[2020-02-03] MEDS: ROBITUSSIN DM PO PRN (20:29)
[2020-02-03] MEDS: LIPITOR TAB 20 MG PO SCH (20:30)
[2020-02-03] MEDS ORDERED: LANTUS SC SCH (21:00)
[2020-02-03] MEDS: PEPCID 20 MG IV PREMIX* 20 MG/50 ML BAG IV SCH (21:43)
[2020-02-04] MEDS: NS 1000 ML 1,000 ML IV SCH ×3 (03:55→20:44)
[2020-02-04] MEDS: ROBITUSSIN DM PO PRN ×2 (03:55→20:43)
[2020-02-04] MEDS: ZOFRAN INJ 4 MG VIAL IVP PRN (03:55)
[2020-02-04 05:39] LABS: BASOPHILS % (AUTO) 0.2 % (0.2-1.0); EOSINOPHILS % (AUTO) 0.1 % (0.9-2.9); HEMATOCRIT 46.4 % (42.0-54.0); HEMOGLOBIN 15.7 g/dL (13.5-18.0); LYMPHOCYTES # (AUTO) 1.1 X10^3/uL (1.3-2.9); LYMPHOCYTES % (AUTO) 9.3 % (21.0-51.0); MEAN CORPUSCULAR HEMOGLOBIN 29.9 pg (27.0-34.0); MEAN CORPUSCULAR HGB CONC 33.9 g/dL (33.0-35.0); MEAN CORPUSCULAR VOLUME 88.3 fL (80.0-100.0); MEAN PLATELET VOLUME 10.3 fL (7.4-11.0); MONOCYTES # (AUTO) 0.9 x10^3/uL (0.3-0.8); MONOCYTES % (AUTO) 7.2 % (0.0-13.0); NEUTROPHILS # (AUTO) 10.1 x10^3/uL (2.2-4.8); NEUTROPHILS % (AUTO) 83.2 % (42.0-75.0); PLATELET COUNT 125 X10^3/uL (150.0-450.0); RED BLOOD COUNT 5.25 X10^6/uL (4.7-6.0); RED CELL DISTRIBUTION WIDTH 13.3 % (11.6-16.5); WHITE BLOOD COUNT 12.2 X10^3/uL (3.6-10.0)
[2020-02-04 06:01] LABS: ALBUMIN 2.9 g/dL (3.4-5.0); CALCIUM 8.5 mg/dL (8.5-10.1); CARBON DIOXIDE 28.4 mmol/L (21-32); COR CA(FOR HYPOALB) 9.4 mg/dL (8.5-10.1); CREATININE 2.31 mg/dL (0.70-1.30); TOTAL PROTEIN 6.5 g/dL (6.4-8.2)
[2020-02-04] MEDS ORDERED: DUONEB 0.5 MG/3 MG (3 mL) NEB ONE (08:35)
[2020-02-04] MEDS: DUONEB 0.5 MG/3 MG (3 mL) NEB SCH ×3 (08:42→21:48)
[2020-02-04] MEDS: COREG TAB 25 MG PO SCH ×2 (09:00→20:41)
[2020-02-04] MEDS: SYNTHROID 25 mcg TAB PO SCH (09:00)
[2020-02-04] MEDS: HEPARIN SODIUM INJ 5000 UNITS SC SCH ×2 (09:00→20:42)
--- NOTE | 2020-02-04 09:03 | RAD ---
HISTORYCOBID INFECTION, COUGHSTUDYCHEST, 1 [id number] view of the chestFINDINGSPatient is rotated. Cardiac and mediastinal contours appear stable. Mild scattered interstitial opacities. No pleural effusion or pneumothorax.IMPRESSIONMild scattered interstitial opacities consistent with covid 19.Electronically signed by: Feliciano Rivera (Feb 04, 2020 09:00:45)
--- NOTE | 2020-02-04 09:04 | RAD ---
HISTORYABD PAIN, N/VSTUDYX-ray abdomen one viewCOMPARISONX-ray 01/26/2020FINDINGSNo abnormalities are seen with the bowel gas pattern. Adjacent to the left transverse process of L1 there is a 9 mm long calcific density. This could be left upper ureteral stone. It is present previously. It could be phlebolith. Minimal vascular calcifications are seen in the pelvis.IMPRESSION9 mm calcification is seen in the left side of the abdomen. This could possibly be a ureteral stone but may be phlebolith.Electronically signed by: Neil Real (Feb 04, 2020 09:02:56)
[2020-02-04] MEDS: LEVSIN/MAALOX/LIDOC VISC PO SCH ×3 (09:06→21:00)
[2020-02-04] MEDS: PHENERGAN TAB 25 MG PO PRN ×2 (09:07→20:43)
[2020-02-04] MEDS: HumuLIN R SC PRN ×2 (11:16→15:50)
--- NOTE | 2020-02-04 12:51 | PCM.PROG ---
Progress Note Progress Note for Day of Date of Exam: 02/04/20 Subjective Subjective: Patient seen at bedside, no overnight events. He states he still feels nauseated and was not able to keep the clears down yesterday. He was able to tolerate some Jello this morning. He has been able to keep water down. He states he also has mild cough, on 2L O2 intermittently since yesterday. He reports epigastric abdominal pain. Denies diarrhea. Denies fever or chills. Labs: WBC trending down 12.2 Plt 124 BUN/Cr: trending down 55/3.31 Glucose 193 Plan: will switch Zofran to Phenergan, add GI cocktail. Continue Pepcid. Continue clear liquids for now and advance as tolerated. Will get KUB and CXR to evaluate further. Add duonebs. Wean O2 as tolerated. Increase IVF to 100cc/hr, monitor AM labs. Past Medical Family Social History Past Med/Fam/Surg Hx: No changes since H&P Allergies: Allergies BEE STINGS Allergy (Uncoded 11/28/13 20:23) Review of Systems ROS: No change since H&P Vital Signs and I&O's Vital Signs: Temperature 97.3 F Pulse Rate [Left Brachial] 83 Pulse Rate 79 Respiratory Rate 19 Blood Pressure [Right Arm] 118/58 Blood Pressure [Left Arm] 118/76 Blood Pressure 128/78 O2 Sat by Pulse Oximetry 99 Intake and Output: Intake & Output 02/01/20 02/02/20 02/03/20 02/04/20 23:59 23:59 23:59 23:59 Intake Total 1435 / 1435 780 / 780 Output Total 375 / 375 Balance 1435 / 1435 405 / 405 Physical Exam Oriented: Normal Eyes: Normal Ear: Normal Nose: Normal Respiratory: Generalized and Diminished Cardiovascular: Normal Auscultation: Bowel Sounds: Normal Tenderness: Epigastric and Mild Skin: Normal Musculoskeletal: Normal Psychiatric: Normal Mood Description: Calm Affect: Normal Speech Pattern: Clear and Appropriate Laboratory and Diagnostics Result Diagrams: 02/04/20 04:35 02/04/20 04:35 Labs: 02/02/20 22:17 Blood Blood Culture - Preliminary 02/02/20 22:14 Blood Blood Culture - Preliminary Laboratory WBC 12.2 X10^3/uL (3.6-10.0) H 02/04/20 04:35 RBC 5.25 X10^6/uL (4.7-6.0) 02/04/20 04:35 Hgb 15.7 g/dL (13.5-18.0) 02/04/20 04:35 Hct 46.4 % (42.0-54.0) 02/04/20 04:35 MCV 88.3 fL (80.0-100.0) 02/04/20 04:35 MCH 29.9 pg (27.0-34.0) 02/04/20 04:35 MCHC 33.9 g/dL (33.0-35.0) 02/04/20 04:35 RDW 13.3 % (11.6-16.5) 02/04/20 04:35 Plt Count 125 X10^3/uL (150.0-450.0) L 02/04/20 04:35 Plt Count Comment Adequate (ADEQUATE) 02/03/20 04:55 MPV 10.3 fL (7.4-11.0) 02/04/20 04:35 Neut % (Auto) 83.2 % (42.0-75.0) H 02/04/20 04:35 Lymph % (Auto) 9.3 % (21.0-51.0) L 02/04/20 04:35 Glenn % (Auto) 7.2 % (0.0-13.0) 02/04/20 04:35 Eos % (Auto) 0.1 % (0.9-2.9) L 02/04/20 04:35 Baso % (Auto) 0.2 % (0.2-1.0) 02/04/20 04:35 Neut # (Auto) 10.1 x10^3/uL (2.2-4.8) H 02/04/20 04:35 Lymph # (Auto) 1.1 X10^3/uL (1.3-2.9) L 02/04/20 04:35 Glenn # (Auto) 0.9 x10^3/uL (0.3-0.8) H 02/04/20 04:35 Eos # (Auto) 0.0 x10^3/uL (0.0-0.2) 02/04/20 04:35 Baso # (Auto) 0.0 X10^3/uL (0.0-0.1) 02/04/20 04:35 Absolute Nucleated RBC 0.0 /100WBC 02/04/20 04:35 Total Counted 100 02/03/20 04:55 Neutrophils % (Manual) 94 % (39-76) H 02/03/20 04:55 Lymphocytes % (Manual) 3 % (13-43) L 02/03/20 04:55 Monocytes % (Manual) 3 % (4-9) L 02/03/20 04:55 Plt Morphology Comment Normal (NORMAL) 02/03/20 04:55 RBC Morphology Normal (NORMAL) 02/03/20 04:55 Sodium 133 mmol/L (136-145) L 02/04/20 04:35 Corrected Sodium 135 mmol/L (136-145) L 02/04/20 04:35 Potassium 4.0 mmol/L (3.5-5.1) 02/04/20 04:35 Chloride 97 mmol/L (98-107) L 02/04/20 04:35 Carbon Dioxide 28.4 mmol/L (21-32) 02/04/20 04:35 BUN 55 mg/dL (7-18) H 02/04/20 04:35 Creatinine 2.31 mg/dL (0.70-1.30) H 02/04/20 04:35 Est GFR (MDRD) Af Amer 37 (>60) L 02/04/20 04:35 Est GFR (MDRD) Non-Af 31 (>60) L 02/04/20 04:35 Glucose 193 mg/dL (65-99) H 02/04/20 04:35 POC Glucose (mg/dL) 208 mg/dL (65-99) H 02/04/20 11:07 Calcium 8.5 mg/dL (8.5-10.1) 02/04/20 04:35 Corrected Calcium 9.4 mg/dL (8.5-10.1) 02/04/20 04:35 Magnesium 2.3 mg/dL (1.7-2.9) 02/04/20 04:35 Total Bilirubin 0.70 mg/dL (0.2-1.0) 02/04/20 04:35 AST 21 Units/L (15-37) 02/04/20 04:35 ALT 33 Units/L (12-78) 02/04/20 04:35 Alkaline Phosphatase 60 Units/L (46-116) 02/04/20 04:35 Total Protein 6.5 g/dL (6.4-8.2) 02/04/20 04:35 Albumin 2.9 g/dL (3.4-5.0) L 02/04/20 04:35 Globulin 3.6 g/dL (2.5-4.5) 02/04/20 04:35 Albumin/Globulin Ratio 0.8 Ratio (1.1-2.1) L 02/04/20 04:35 Specimen Type Clean catch urine 02/03/20 04:20 Urine Color Yellow (YELLOW) 02/03/20 04:20 Urine Appearance Clear (CLEAR) 02/03/20 04:20 Urine pH 5.0 (5.0 - 8.0) 02/03/20 04:20 Ur Specific [place] 1.025 (1.000-1.030) 02/03/20 04:20 Urine Protein 3+ (NEGATIVE) 02/03/20 04:20 Urine Glucose (UA) 1+ (NEGATIVE) 02/03/20 04:20 Urine Ketones 2+ (NEGATIVE) 02/03/20 04:20 Urine Occult Blood Negative (NEGATIVE) 02/03/20 04:20 Urine Nitrite Negative (NEGATIVE) 02/03/20 04:20 Urine Bilirubin Negative (NEGATIVE) 02/03/20 04:20 Urine Urobilinogen Normal (NORMAL) 02/03/20 04:20 Ur Leukocyte Esterase Negative (NEGATIVE) 02/03/20 04:20 Urine RBC None seen /HPF (0-3) 02/03/20 04:20 Urine WBC None seen /HPF (0-5) 02/03/20 04:20 Ur Squamous Epith Cells Negative /HPF (NEGATIVE) 02/03/20 04:20 Urine Bacteria Trace /HPF (NEGATIVE) 02/03/20 04:20 Ur Culture Indicated? No/not indicated 02/03/20 04:20 SARS CoV-2 RNA Rapid DAVID Negative (NEGATIVE) 02/03/20 10:00 Plan (1) COVID-19 virus infection: Status: Acute (2) Acute on chronic renal failure: Status: Acute Qualifiers: Acute renal failure type: unspecified Chronic kidney disease stage: unspecified stage Qualified Code(s): N17.9 - Acute kidney failure, unspecified; N18.9 - Chronic kidney disease, unspecified (3) Nausea and vomiting: Status: Acute Qualifiers: Vomiting type: bilious vomiting Qualified Code(s): R11.14 - Bilious vomiting (4) Dehydration: Status: Acute
[2020-02-04] MEDS: SNACK - Diabetic Appropriate PO SCH (20:40)
[2020-02-04] MEDS: LIPITOR TAB 20 MG PO SCH (20:41)
[2020-02-04] MEDS: PEPCID 20 MG IV PREMIX* 20 MG/50 ML BAG IV SCH (20:41)
[2020-02-04] MEDS: LANTUS SC SCH (21:30)
[2020-02-05] MEDS: LEVSIN/MAALOX/LIDOC VISC PO SCH ×3 (05:38→21:56)
[2020-02-05] MEDS: NS 1000 ML 1,000 ML IV SCH ×3 (05:39→20:45)
[2020-02-05 05:41] LABS: BASOPHILS % (AUTO) 0.1 % (0.2-1.0); EOSINOPHILS % (AUTO) 0.4 % (0.9-2.9); HEMATOCRIT 42.8 % (42.0-54.0); HEMOGLOBIN 14.4 g/dL (13.5-18.0); LYMPHOCYTES # (AUTO) 1.7 X10^3/uL (1.3-2.9); LYMPHOCYTES % (AUTO) 21.7 % (21.0-51.0); MEAN CORPUSCULAR HEMOGLOBIN 29.9 pg (27.0-34.0); MEAN CORPUSCULAR HGB CONC 33.7 g/dL (33.0-35.0); MEAN CORPUSCULAR VOLUME 88.6 fL (80.0-100.0); MEAN PLATELET VOLUME 10.6 fL (7.4-11.0); MONOCYTES # (AUTO) 0.7 x10^3/uL (0.3-0.8); MONOCYTES % (AUTO) 9.4 % (0.0-13.0); NEUTROPHILS # (AUTO) 5.4 x10^3/uL (2.2-4.8); NEUTROPHILS % (AUTO) 68.4 % (42.0-75.0); PLATELET COUNT 104 X10^3/uL (150.0-450.0); RED BLOOD COUNT 4.83 X10^6/uL (4.7-6.0); WHITE BLOOD COUNT 7.9 X10^3/uL (3.6-10.0)
[2020-02-05] MEDS: DUONEB 0.5 MG/3 MG (3 mL) NEB SCH ×3 (05:45→22:12)
[2020-02-05 05:47] LABS: ALBUMIN 2.6 g/dL (3.4-5.0); CALCIUM 8.6 mg/dL (8.5-10.1); COR CA(FOR HYPOALB) 9.7 mg/dL (8.5-10.1); CREATININE 1.91 mg/dL (0.70-1.30); TOTAL PROTEIN 5.9 g/dL (6.4-8.2)
[2020-02-05 05:56] LABS: CARBON DIOXIDE 30.2 mmol/L (21-32)
[2020-02-05] MEDS: COREG TAB 25 MG PO SCH ×2 (09:00→20:45)
[2020-02-05] MEDS: SYNTHROID 25 mcg TAB PO SCH (09:00)
[2020-02-05] MEDS: HEPARIN SODIUM INJ 5000 UNITS SC SCH ×2 (09:00→21:53)
--- NOTE | 2020-02-05 10:30 | PCM.PROG ---
Progress Note Progress Note for Day of Date of Exam: 02/05/20 Subjective Subjective: Patient seen at bedside, no overnight events. Patient states his nausea is almost gone, no vomiting or diarrhea. His abdominal pain has improved. He was able to eat Jello and pudding yesterday. He states he feels slightly better today. He tried eating a piece of toast and kaye this morning but could not tolerate it much. Labs: WBC trending down 7.9 Plt 104 BUN/Cr: trending down 40/1.91 Glucose 192 Lipase 743 KUB: no acute finding, prev calcified ureteral stone noted, also seen in prev imaging CXR: b/l interstitial opacities consistent with COVID-19 infection Plan: will advance diet to Full liquids and see if patient able to tolerate. Continue Phenergan prn, pepcid and GI cocktail. Continue gentle hydration. Continue duonebs prn. Wean O2 as tolerated. Continue home medications. Possible discharge tomorrow if patient able to tolerate PO intake. Past Medical Family Social History Past Med/Fam/Surg Hx: No changes since H&P Allergies: Allergies BEE STINGS Allergy (Uncoded 11/28/13 20:23) Review of Systems ROS: No change since H&P Vital Signs and I&O's Vital Signs: Temperature 97.5 F Pulse Rate [Left Brachial] 80 Pulse Rate 81 Respiratory Rate 18 Blood Pressure [Right Arm] 145/79 Blood Pressure [Left Arm] 118/76 Blood Pressure 128/78 O2 Sat by Pulse Oximetry 99 Intake and Output: Intake & Output 02/02/20 02/03/20 02/04/20 02/05/20 23:59 23:59 23:59 23:59 Intake Total 1435 / 1435 3239 / 3239 1125 / 1125 Output Total 375 / 375 Balance 1435 / 1435 2864 / 2864 1125 / 1125 Physical Exam Oriented: Normal Eyes: Normal Ear: Normal Nose: Normal Respiratory: Generalized and Diminished Cardiovascular: Normal Auscultation: Bowel Sounds: Normal Tenderness: Normal Skin: Normal Musculoskeletal: Normal Psychiatric: Normal Mood Description: Calm Affect: Normal Speech Pattern: Clear and Appropriate Laboratory and Diagnostics Result Diagrams: 02/05/20 04:35 02/05/20 04:35 Labs: 02/02/20 22:17 Blood Blood Culture - Preliminary 02/02/20 22:14 Blood Blood Culture - Preliminary Laboratory WBC 7.9 X10^3/uL (3.6-10.0) 02/05/20 04:35 RBC 4.83 X10^6/uL (4.7-6.0) 02/05/20 04:35 Hgb 14.4 g/dL (13.5-18.0) 02/05/20 04:35 Hct 42.8 % (42.0-54.0) 02/05/20 04:35 MCV 88.6 fL (80.0-100.0) 02/05/20 04:35 MCH 29.9 pg (27.0-34.0) 02/05/20 04:35 MCHC 33.7 g/dL (33.0-35.0) 02/05/20 04:35 RDW 13.0 % (11.6-16.5) 02/05/20 04:35 Plt Count 104 X10^3/uL (150.0-450.0) L 02/05/20 04:35 Plt Count Comment Adequate (ADEQUATE) 02/03/20 04:55 MPV 10.6 fL (7.4-11.0) 02/05/20 04:35 Neut % (Auto) 68.4 % (42.0-75.0) 02/05/20 04:35 Lymph % (Auto) 21.7 % (21.0-51.0) 02/05/20 04:35 [place] % (Auto) 9.4 % (0.0-13.0) 02/05/20 04:35 Eos % (Auto) 0.4 % (0.9-2.9) L 02/05/20 04:35 Baso % (Auto) 0.1 % (0.2-1.0) L 02/05/20 04:35 Neut # (Auto) 5.4 x10^3/uL (2.2-4.8) H 02/05/20 04:35 Lymph # (Auto) 1.7 X10^3/uL (1.3-2.9) 02/05/20 04:35 [place] # (Auto) 0.7 x10^3/uL (0.3-0.8) 02/05/20 04:35 Eos # (Auto) 0.0 x10^3/uL (0.0-0.2) 02/05/20 04:35 Baso # (Auto) 0.0 X10^3/uL (0.0-0.1) 02/05/20 04:35 Absolute Nucleated RBC 0.1 /100WBC 02/05/20 04:35 Total Counted 100 02/03/20 04:55 Neutrophils % (Manual) 94 % (39-76) H 02/03/20 04:55 Lymphocytes % (Manual) 3 % (13-43) L 02/03/20 04:55 Monocytes % (Manual) 3 % (4-9) L 02/03/20 04:55 Plt Morphology Comment Normal (NORMAL) 02/03/20 04:55 RBC Morphology Normal (NORMAL) 02/03/20 04:55 Sodium 135 mmol/L (136-145) L 02/05/20 04:35 Corrected Sodium 137 mmol/L (136-145) 02/05/20 04:35 Potassium 4.0 mmol/L (3.5-5.1) 02/05/20 04:35 Chloride 101 mmol/L (98-107) 02/05/20 04:35 Carbon Dioxide 30.2 mmol/L (21-32) 02/05/20 04:35 BUN 40 mg/dL (7-18) H 02/05/20 04:35 Creatinine 1.91 mg/dL (0.70-1.30) H 02/05/20 04:35 Est GFR (MDRD) Af Amer 46 (>60) L 02/05/20 04:35 Est GFR (MDRD) Non-Af 38 (>60) L 02/05/20 04:35 Glucose 192 mg/dL (65-99) H 02/05/20 04:35 POC Glucose (mg/dL) 204 mg/dL (65-99) H 02/05/20 05:33 Calcium 8.6 mg/dL (8.5-10.1) 02/05/20 04:35 Corrected Calcium 9.7 mg/dL (8.5-10.1) 02/05/20 04:35 Magnesium 2.3 mg/dL (1.7-2.9) 02/04/20 04:35 Total Bilirubin 0.60 mg/dL (0.2-1.0) 02/05/20 04:35 AST 20 Units/L (15-37) 02/05/20 04:35 ALT 31 Units/L (12-78) 02/05/20 04:35 Alkaline Phosphatase 64 Units/L (46-116) 02/05/20 04:35 Total Protein 5.9 g/dL (6.4-8.2) L 02/05/20 04:35 Albumin 2.6 g/dL (3.4-5.0) L 02/05/20 04:35 Globulin 3.3 g/dL (2.5-4.5) 02/05/20 04:35 Albumin/Globulin Ratio 0.8 Ratio (1.1-2.1) L 02/05/20 04:35 Lipase 740 Units/L (73-393) H 02/05/20 04:35 Specimen Type Clean catch urine 02/03/20 04:20 Urine Color Yellow (YELLOW) 02/03/20 04:20 Urine Appearance Clear (CLEAR) 02/03/20 04:20 Urine pH 5.0 (5.0 - 8.0) 02/03/20 04:20 Ur Specific [place] 1.025 (1.000-1.030) 02/03/20 04:20 Urine Protein 3+ (NEGATIVE) 02/03/20 04:20 Urine Glucose (UA) 1+ (NEGATIVE) 02/03/20 04:20 Urine Ketones 2+ (NEGATIVE) 02/03/20 04:20 Urine Occult Blood Negative (NEGATIVE) 02/03/20 04:20 Urine Nitrite Negative (NEGATIVE) 02/03/20 04:20 Urine Bilirubin Negative (NEGATIVE) 02/03/20 04:20 Urine Urobilinogen Normal (NORMAL) 02/03/20 04:20 Ur Leukocyte Esterase Negative (NEGATIVE) 02/03/20 04:20 Urine RBC None seen /HPF (0-3) 02/03/20 04:20 Urine WBC None seen /HPF (0-5) 02/03/20 04:20 Ur Squamous Epith Cells Negative /HPF (NEGATIVE) 02/03/20 04:20 Urine Bacteria Trace /HPF (NEGATIVE) 02/03/20 04:20 Ur Culture Indicated? No/not indicated 02/03/20 04:20 SARS CoV-2 RNA Rapid DAVID Negative (NEGATIVE) 12/13/20 10:00 Plan (1) Acute pancreatitis: Status: Acute Qualifiers: Acute pancreatitis complication: unspecified Pancreatitis type: other Qualified Code(s): K85.80 - Other acute pancreatitis without necrosis or infection (2) COVID-19 virus infection: Status: Acute (3) Acute on chronic renal failure: Status: Acute Qualifiers: Acute renal failure type: unspecified Chronic kidney disease stage: unspecified stage Qualified Code(s): N17.9 - Acute kidney failure, unspecified; N18.9 - Chronic kidney disease, unspecified (4) Nausea and vomiting: Status: Acute Qualifiers: Vomiting type: bilious vomiting Qualified Code(s): R11.14 - Bilious vomiting (5) Dehydration: Status: Acute
[2020-02-05] MEDS: PEPCID 20 MG IV PREMIX* 20 MG/50 ML BAG IV SCH (20:45)
[2020-02-05] MEDS: LANTUS SC SCH (20:45)
[2020-02-05] MEDS: LIPITOR TAB 20 MG PO SCH (20:45)
[2020-02-05] MEDS: SNACK - Diabetic Appropriate PO SCH (21:57)
[2020-02-06] MEDS: NS 1000 ML 1,000 ML IV SCH ×2 (04:14→06:16)
[2020-02-06] MEDS: LEVSIN/MAALOX/LIDOC VISC PO SCH (05:24)
[2020-02-06] MEDS: DUONEB 0.5 MG/3 MG (3 mL) NEB SCH (06:12)
[2020-02-06 07:27] LABS: BASOPHILS % (AUTO) 0.2 % (0.2-1.0); EOSINOPHILS # (AUTO) 0.1 x10^3/uL (0.0-0.2); HEMATOCRIT 46.7 % (42.0-54.0); HEMOGLOBIN 15.6 g/dL (13.5-18.0); LYMPHOCYTES # (AUTO) 1.3 X10^3/uL (1.3-2.9); LYMPHOCYTES % (AUTO) 17.9 % (21.0-51.0); MEAN CORPUSCULAR HEMOGLOBIN 29.8 pg (27.0-34.0); MEAN CORPUSCULAR HGB CONC 33.4 g/dL (33.0-35.0); MEAN CORPUSCULAR VOLUME 89.2 fL (80.0-100.0); MEAN PLATELET VOLUME 11.1 fL (7.4-11.0); MONOCYTES # (AUTO) 0.7 x10^3/uL (0.3-0.8); MONOCYTES % (AUTO) 9.3 % (0.0-13.0); NEUTROPHILS # (AUTO) 5.1 x10^3/uL (2.2-4.8); NEUTROPHILS % (AUTO) 71.6 % (42.0-75.0); PLATELET COUNT 93 X10^3/uL (150.0-450.0); RED BLOOD COUNT 5.24 X10^6/uL (4.7-6.0); RED CELL DISTRIBUTION WIDTH 12.9 % (11.6-16.5); WHITE BLOOD COUNT 7.1 X10^3/uL (3.6-10.0)
[2020-02-06 07:41] LABS: ALBUMIN 2.9 g/dL (3.4-5.0); CALCIUM 9.2 mg/dL (8.5-10.1); CARBON DIOXIDE 29.8 mmol/L (21-32); COR CA(FOR HYPOALB) 10.1 mg/dL (8.5-10.1); CREATININE 1.59 mg/dL (0.70-1.30); TOTAL PROTEIN 6.3 g/dL (6.4-8.2)
--- NOTE | 2020-02-06 08:16 | W.DIS.FURT ---
Summary of Discharge Admission Diagnosis Patient Problems (Updated 02/05/20 @ 10:39 by Geetha Sneed) Nausea and vomiting (Acute) R11.2 Dehydration (Acute) E86.0 COVID-19 virus infection (Acute) U07.1 Vital Signs: Vital Signs (72 hours) 02/03/20 10:00 02/03/20 12:00 02/03/20 14:00 Temperature 98.7 F 98.2 F Pulse Rate 96 H 82 Pulse Rate [Left Brachial] 99 H Respiratory Rate 15 15 15 Blood Pressure 138/92 151/82 Blood Pressure [Right Arm] 137/78 O2 Sat by Pulse Oximetry 96 96 96 02/03/20 16:00 02/03/20 16:27 02/03/20 18:00 Temperature 98.2 F Pulse Rate 86 88 Pulse Rate [Left Brachial] 92 H Respiratory Rate 15 14 22 Blood Pressure 128/78 128/78 Blood Pressure [Right Arm] 151/85 O2 Sat by Pulse Oximetry 96 96 91 L 02/03/20 20:00 02/04/20 00:00 02/04/20 04:00 Temperature 98.1 F 98.1 F 98.3 F Pulse Rate Pulse Rate [Left Brachial] 93 H 82 75 Respiratory Rate 18 18 18 Blood Pressure Blood Pressure [Right Arm] 135/79 134/74 127/76 O2 Sat by Pulse Oximetry 92 L 97 97 02/04/20 08:00 02/04/20 08:42 02/04/20 09:06 Temperature 97.5 F L Pulse Rate 79 Pulse Rate [Left Brachial] 75 Respiratory Rate 19 22 Blood Pressure Blood Pressure [Right Arm] 136/80 O2 Sat by Pulse Oximetry 100 96 02/04/20 10:05 02/04/20 12:00 02/04/20 14:01 Temperature 97.3 F L Pulse Rate Pulse Rate [Left Brachial] 83 Respiratory Rate 16 19 14 Blood Pressure Blood Pressure [Right Arm] 118/58 O2 Sat by Pulse Oximetry 99 02/04/20 14:40 02/04/20 15:01 02/04/20 16:00 Temperature 97.5 F L Pulse Rate 84 Pulse Rate [Left Brachial] 80 Respiratory Rate 14 17 Blood Pressure Blood Pressure [Right Arm] 130/69 O2 Sat by Pulse Oximetry 100 98 02/04/20 20:00 02/04/20 21:00 02/04/20 21:48 Temperature 98.2 F Pulse Rate 81 Pulse Rate [Left Brachial] 74 Respiratory Rate 19 18 Blood Pressure Blood Pressure [Right Arm] 141/88 O2 Sat by Pulse Oximetry 98 96 02/04/20 22:00 02/05/20 00:00 02/05/20 03:53 Temperature 98.3 F 98.1 F Pulse Rate Pulse Rate [Left Brachial] 69 78 Respiratory Rate 18 17 20 Blood Pressure Blood Pressure [Right Arm] 117/57 144/80 O2 Sat by Pulse Oximetry 99 98 02/05/20 05:38 02/05/20 06:34 02/05/20 08:00 Temperature 97.5 F L Pulse Rate Pulse Rate [Left Brachial] 80 Respiratory Rate 18 18 18 Blood Pressure Blood Pressure [Right Arm] 145/79 O2 Sat by Pulse Oximetry 99 02/05/20 12:00 02/05/20 13:35 02/05/20 14:55 Temperature 98.6 F Pulse Rate 70 Pulse Rate [Left Brachial] 70 Respiratory Rate 18 20 Blood Pressure Blood Pressure [Right Arm] 121/78 O2 Sat by Pulse Oximetry 96 96 02/05/20 15:55 02/05/20 16:00 02/05/20 20:00 Temperature 98.2 F 98.1 F Pulse Rate Pulse Rate [Left Brachial] 76 84 Respiratory Rate 20 18 18 Blood Pressure Blood Pressure [Right Arm] 159/85 150/95 O2 Sat by Pulse Oximetry 97 97 02/05/20 21:56 02/05/20 22:12 02/05/20 22:56 Temperature Pulse Rate 78 Pulse Rate [Left Brachial] Respiratory Rate 18 20 Blood Pressure Blood Pressure [Right Arm] O2 Sat by Pulse Oximetry 95 02/06/20 00:00 02/06/20 04:00 02/06/20 05:24 Temperature 98.8 F 98.3 F Pulse Rate Pulse Rate [Left Brachial] 86 88 Respiratory Rate 18 18 22 Blood Pressure Blood Pressure [Right Arm] 153/98 145/88 O2 Sat by Pulse Oximetry 96 98 02/06/20 06:24 Temperature Pulse Rate Pulse Rate [Left Brachial] Respiratory Rate 22 Blood Pressure Blood Pressure [Right Arm] O2 Sat by Pulse Oximetry Labs: Laboratory Last Values WBC 7.1 X10^3/uL (3.6-10.0) 02/06/20 06:37 RBC 5.24 X10^6/uL (4.7-6.0) 02/06/20 06:37 Hgb 15.6 g/dL (13.5-18.0) 02/06/20 06:37 Hct 46.7 % (42.0-54.0) 02/06/20 06:37 MCV 89.2 fL (80.0-100.0) 02/06/20 06:37 MCH 29.8 pg (27.0-34.0) 02/06/20 06:37 MCHC 33.4 g/dL (33.0-35.0) 02/06/20 06:37 RDW 12.9 % (11.6-16.5) 02/06/20 06:37 Plt Count 93 X10^3/uL (150.0-450.0) L 02/06/20 06:37 Plt Count Comment Adequate (ADEQUATE) 02/03/20 04:55 MPV 11.1 fL (7.4-11.0) H 02/06/20 06:37 Neut % (Auto) 71.6 % (42.0-75.0) 02/06/20 06:37 Lymph % (Auto) 17.9 % (21.0-51.0) L 02/06/20 06:37 [place] % (Auto) 9.3 % (0.0-13.0) 02/06/20 06:37 Eos % (Auto) 1.0 % (0.9-2.9) 02/06/20 06:37 Baso % (Auto) 0.2 % (0.2-1.0) 02/06/20 06:37 Neut # (Auto) 5.1 x10^3/uL (2.2-4.8) H 02/06/20 06:37 Lymph # (Auto) 1.3 X10^3/uL (1.3-2.9) 02/06/20 06:37 [place] # (Auto) 0.7 x10^3/uL (0.3-0.8) 02/06/20 06:37 Eos # (Auto) 0.1 x10^3/uL (0.0-0.2) 02/06/20 06:37 Baso # (Auto) 0.0 X10^3/uL (0.0-0.1) 02/06/20 06:37 Absolute Nucleated RBC 0.1 /100WBC 02/06/20 06:37 Total Counted 100 02/03/20 04:55 Neutrophils % (Manual) 94 % (39-76) H 02/03/20 04:55 Lymphocytes % (Manual) 3 % (13-43) L 02/03/20 04:55 Monocytes % (Manual) 3 % (4-9) L 02/03/20 04:55 Plt Morphology Comment Normal (NORMAL) 02/03/20 04:55 RBC Morphology Normal (NORMAL) 02/03/20 04:55 Sodium 136 mmol/L (136-145) 02/06/20 06:37 Corrected Sodium 138 mmol/L (136-145) 02/06/20 06:37 Potassium 4.1 mmol/L (3.5-5.1) 02/06/20 06:37 Chloride 100 mmol/L (98-107) 02/06/20 06:37 Carbon Dioxide 29.8 mmol/L (21-32) 02/06/20 06:37 BUN 22 mg/dL (7-18) H 02/06/20 06:37 Creatinine 1.59 mg/dL (0.70-1.30) H 02/06/20 06:37 Est GFR (MDRD) Af Amer 57 (>60) L 02/06/20 06:37 Est GFR (MDRD) Non-Af 47 (>60) L 02/06/20 06:37 Glucose 182 mg/dL (65-99) H 02/06/20 06:37 POC Glucose (mg/dL) 184 mg/dL (65-99) H 02/06/20 05:40 Calcium 9.2 mg/dL (8.5-10.1) 02/06/20 06:37 Corrected Calcium 10.1 mg/dL (8.5-10.1) 02/06/20 06:37 Magnesium 2.3 mg/dL (1.7-2.9) 02/04/20 04:35 Total Bilirubin 0.60 mg/dL (0.2-1.0) 02/06/20 06:37 AST 23 Units/L (15-37) 02/06/20 06:37 ALT 33 Units/L (12-78) 02/06/20 06:37 Alkaline Phosphatase 72 Units/L (46-116) 02/06/20 06:37 Total Protein 6.3 g/dL (6.4-8.2) L 02/06/20 06:37 Albumin 2.9 g/dL (3.4-5.0) L 02/06/20 06:37 Globulin 3.4 g/dL (2.5-4.5) 02/06/20 06:37 Albumin/Globulin Ratio 0.9 Ratio (1.1-2.1) L 02/06/20 06:37 Lipase 740 Units/L (73-393) H 02/05/20 04:35 Specimen Type Clean catch urine 02/03/20 04:20 Urine Color Yellow (YELLOW) 02/03/20 04:20 Urine Appearance Clear (CLEAR) 02/03/20 04:20 Urine pH 5.0 (5.0 - 8.0) 02/03/20 04:20 Ur Specific [place] 1.025 (1.000-1.030) 02/03/20 04:20 Urine Protein 3+ (NEGATIVE) 02/03/20 04:20 Urine Glucose (UA) 1+ (NEGATIVE) 02/03/20 04:20 Urine Ketones 2+ (NEGATIVE) 02/03/20 04:20 Urine Occult Blood Negative (NEGATIVE) 02/03/20 04:20 Urine Nitrite Negative (NEGATIVE) 02/03/20 04:20 Urine Bilirubin Negative (NEGATIVE) 02/03/20 04:20 Urine Urobilinogen Normal (NORMAL) 02/03/20 04:20 Ur Leukocyte Esterase Negative (NEGATIVE) 02/03/20 04:20 Urine RBC None seen /HPF (0-3) 02/03/20 04:20 Urine WBC None seen /HPF (0-5) 02/03/20 04:20 Ur Squamous Epith Cells Negative /HPF (NEGATIVE) 02/03/20 04:20 Urine Bacteria Trace /HPF (NEGATIVE) 02/03/20 04:20 Ur Culture Indicated? No/not indicated 02/03/20 04:20 SARS CoV-2 RNA Rapid DAVID Negative (NEGATIVE) 02/03/20 10:00 Reason For Visit: COVID 19 INFECTION,DEHYDRATION,VOMITING Discharge Diagnosis All Active Problems (Updated 02/05/20 @ 10:39 by Geetha Sneed) Acute pancreatitis (Acute) Acute on chronic renal failure (Acute) Nausea and vomiting (Acute) Dehydration (Acute) Dyspnea (Acute) Chest pain (Acute) COVID-19 virus infection (Acute) Gastroenteritis due to COVID-19 virus (Acute) Pulmonary infiltrate in left lung on CXR (Acute) Dehydration, moderate (Acute) Chronic kidney disease (CKD) (Acute) Plan of Treatment: Continue with present treatment and follow up plan. Pt is to keep follow up appointment as instructed and take medications as ordered. Discharge Medications Discharge Medications: BEE STINGS Allergy (Uncoded 11/28/13 20:23) CONTINUE taking the following medications liraglutide [Victoza 3-Danny] 0.8 mg SUBCUT DAILY 02/03/20 [History] New Prescriptions promethazine 25 mg PO Q6H PRN 10 Days #20 tab 02/06/20 [Rx] Discharge Plan Discharge Plan Condition: Stable Health Concerns: Post Hospitalization: new medications and changes needed to prevent readmission or further decline. Pt educated and given instructions on all concerns. Care Plan Goals: Problem: Altered nutrition Goal: Nutrition deficit will be minimized or prevented. Instructions: Follow provided instructions. Follow up with primary physician as directed. Contact primary care physician or report to the closest Emergency Room if condition worsens. Plan of Treatment: Continue with present treatment and follow up plan. Pt is to keep follow up appointment as instructed and take medications as ordered. Prescription drug monitoring program results: PDMP reviewed and no concerns identified Prescriptions: New promethazine 25 mg Tablet 25 mg PO Q6H PRN10 Days Qty: 20 RF: 0 Continued carvedilol 25 MG tablet 25 mg PO BID RF: 0 anastrozole 1 MG tablet 1 mg PO DAILY RF: 0 fenofibrate 160 MG tablet 160 mg PO DAILY RF: 0 Lisinopril 20 MG Tab 20 mg PO DAILY RF: 0 atorvastatin [Lipitor] 20 MG tablet 20 mg PO HS RF: 0 testosterone cypionate [Depo-Testosterone] 1,000 MG/10 ML oil 100 mg IM Q2W RF: 0 Victoza 3-Danny 0.6 mg/0.1 mL (18 mg/3 mL) pen injector 0.8 mg SUBCUT DAILY RF: 0 Lantus U-100 Insulin 100 unit/mL Solution 60 unit SUBCUT HS RF: 0 metformin 850 mg Tablet 850 mg PO DAILY RF: 0 chlorthalidone 25 mg tablet 25 mg PO DAILY RF: 0 levothyroxine 25 mcg tablet 25 mcg PO DAILY RF: 0 pioglitazone 30 mg tablet 30 mg PO DAILY RF: 0 Discontinued apixaban [Eliquis] 5 MG tablet 10 mg PO BID Qty: 66 RF: 6 Orders to Discharge Patient Discharge Orders: Discharge (Routine); Ordered 02/06/20 Ordered By: Geetha Sneed Follow ups/Referrals Follow ups/Referrals: JOJO KERNS [Primary Care Provider] - 1 WEEK Instructions Instructions: Shortness of Breath, Adult, [id number], Droplet Precautions, Dehydration, Adult, Ljdu-vo-Qasf, Nausea and Vomiting, Adult, Hand Washing, Vpot-vl-Lvar, Viral Gastroenteritis, Adult, Bzsr-ch-Btnn, Rehydration, Adult, Chronic Kidney Disease, Adult, [id number]-ds-Mgqf, Contact Precautions, Xgol-[id number], Viral Respiratory Infection Activity Restrictions/Additional Instructions: Follow up with Dr. Kerns as scheduled in one week, repeat CBC to check platelet count. Stand Alone Forms: Precautions for COVID19, Patient Portal, Social Distancing
[2020-02-06 10:07] VITALS: BP 131/83
[2020-02-06] MEDS: COREG TAB 25 MG PO SCH (10:08)
[2020-02-06] MEDS: SYNTHROID 25 mcg TAB PO SCH (10:08)
== END 2020-02-06 11:10 | disposition home or self-care (01) ==
LOC: ICU 16:26 → ER 16:26 → ICU 23:35 → MED/SURG 02-05 09:50
PROVIDERS: ADMIT Family Medicine; ATTEND Family Medicine
DX: N17.8 Other acute kidney failure; I12.9 Hypertensive chronic kidney disease with stage 1 through stage 4 chronic kidney disease, or unspecified chronic kidney disease; K85.80 Other acute pancreatitis without necrosis or infection; U07.1 COVID-19; E11.65 Type 2 diabetes mellitus with hyperglycemia; Z20.828 Contact with and (suspected) exposure to other viral communicable diseases; N18.9 Chronic kidney disease, unspecified; R11.14 Bilious vomiting; E86.0 Dehydration